=== PATIENT | male | born 1945 | race Caucasian/White ===

== ENCOUNTER 2021-08-27 11:48 | Emergency (ER) | payer OTHER, SELFPAY ==
[2021-08-27 11:48] VITALS: BP 126/84; PULSE 71; RESP 18; TEMP 36.9; O2SAT 99; BMI 16.9
--- NOTE | 2021-08-27 12:00 | EX.ED.DYSGE1 ---
HPI History of Present Illness Chief Complaint: Abn Labs Detail of Chief Complaint: Low magnesium Informant: patient Narrative Narrative: Patient presents to the emergency department with complaint of low magnesium. Patient [facility] that [facility] Patient was advised to come to the emergency department to get an IV infusion of magnesium. 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 At that time he was told he should discontinue his magnesium until advised otherwise. Patient has been off of antibiotics for over 2 months now and nobody is told him to restart his magnesium. Patient states he feels great otherwise has no complaints. Prior similar symptoms: No PFSH PFSH Medical History (Updated 08/27/21 @ 13:[address] Héctor Lozada DO) GERD (gastroesophageal reflux disease) High cholesterol HTN (hypertension) Home Medications albuterol sulfate 2 puff INHALATION Q6H PRN 08/27/21 [History Last Taken Unknown] aspirin [Aspir-81] 81 mg PO DAILY 08/27/21 [History Last Taken Unknown] cholecalciferol (vitamin D3) 25 mcg PO DAILY 08/27/21 [History Last Taken Unknown] furosemide 20 mg PO DAILY PRN 08/27/21 [History Last Taken Unknown] magnesium [Mag-200] 420 mg PO DAILY 08/27/21 [History Last Taken Unknown] metoprolol succinate 200 mg PO DAILY 08/27/21 [History Last Taken Unknown] omeprazole 40 mg PO DAILY 08/27/21 [History Last Taken Unknown] sacubitril-valsartan 1 tab PO BID 08/27/21 [History Last Taken Unknown] simvastatin 40 mg PO QHS 08/27/21 [History Last Taken Unknown] tiotropium bromide 2 puff INHALATION DAILY 08/27/21 [History Last Taken Unknown] Allergy/AdvReac Type Severity Reaction Status Date / Time amoxicillin [From Augmentin] Allergy NEEDS Verified 08/27/21 11:49 FOLLOW-UP clavulanic acid Allergy NEEDS Verified 08/27/21 11:49 [From Augmentin] FOLLOW-UP Surgical History (Updated 08/27/21 @ 12:09 by Barbara Power) History of loop recorder Social History Smoking Status: Never smoker ROS ROS ED Constitutional Constitutional ED: Reports systems reviewed and no addt'l complaints, except as documented; Denies body ache(s), change in weight or chills Eyes Eyes: Denies acute decrease in peripheral vision, change in vision, double vision or loss of vision ENT ENT ED: Reports none; Denies ear pain, lip swelling, loss taste/smell, neck pain, otalgia or sore throat Cardiovascular Cardiovascular: Reports none; Denies abdominal pain, chest pain with activity, leg edema, lightheadedness, palpitations, rapid heart rate or syncope Respiratory/Chest Respiratory/Chest: Reports none; Denies change in mental status, dry cough, dyspnea, hemoptysis, shortness of breath at rest or shortness of breath with exertion Gastrointestinal Gastrointestinal: Reports none; Denies abdominal pain, change in stool character, diarrhea, hematemesis, hematochezia, melena, rectal bleeding or vomiting Genitourinary Genitourinary ED: Reports none; Denies abdominal discomfort, anuria, dysuria, genital pain or polyuria Musculoskeletal Musculoskeletal: Reports none; Denies arthralgias, back pain, difficulty walking, extremity pain, muscle weakness or myalgias Integumentary Reports none; Denies abscess or rash Neurologic Neurologic: Reports none; Denies abnormal gait, confusion, focal weakness, frequent falls, headache(s), loss of vision, numbness, paresthesias, radicular pain, vertigo or weakness Psychiatric Psychiatric: Reports systems reviewed and no addt'l complaints, except as documented and none; Denies behavioral changes, confusion, difficulty concentrating, hallucinations, suicidal ideation, tactile hallucinations or visual hallucinations Endocrine Endocrinology: Denies none, cold intolerance, excessive sweating, fatigue or heat intolerance Hematologic/Lymphatic Hematologic/Lymphatic: Reports none; Denies anemia, easy bleeding or easy bruising Allergic/Immunologic Allergic/Immunologic ED: Denies as per HPI, none, lip swelling, mouth swelling, throat swelling, tongue swelling or hives EXAM Physical Exam Const Vital Signs: 08/27/21 11:48 08/27/21 12:09 08/27/21 12:11 Temperature 98.5 F Temperature Source Temporal Pulse Rate 71 89 Respiratory Rate 18 18 Respiratory Effort Normal Non-Labored Respiratory Pattern Normal Blood Pressure 126/84 H 135/83 H Blood Pressure Mean 98 100 Pulse Ox 99 100 Oxygen Delivery Method Room Air Room Air 08/27/21 13:43 Temperature Temperature Source Pulse Rate 80 Respiratory Rate 24 H Respiratory Effort Respiratory Pattern Blood Pressure 122/80 H Blood Pressure Mean 94 Pulse Ox 97 Oxygen Delivery Method Room Air Positive well nourished and well developed General Appearance ED: well developed and NAD HEENT Reports TM's clear and moist mucous membranes normocephalic and atraumatic; Negative for trauma or tenderness Tympanic Membrane ED: Yes TM's clear Eyes PERRL and EOMs intact bilaterally General Eye ED: Negative for pale conjunctiva or scleral icterus Neck no lymphadenopathy, supple and no JVD General: Negative for tenderness Chest Wall inspection of chest normal and palpation of chest normal Chest: Negative for tenderness Resp normal respiratory effort and clear to auscultation bilaterally Effort and Inspection: Negative for respiratory distress or pain with movement Auscultation: Negative for rhonchi, wheezes or diminished lung sounds Cardio regular rate, regular rhythm, S1 normal heart sound, S2 normal heart sound and no murmurs Peripheral Pulses: pulses 2+ throughout GI normal to inspection, nondistended, normoactive bowel sounds, soft to palpation, non-tender, non-distended and no masses Back/Spine no CVA tenderness and no thoracic nor lumbar tenderness Extremity normal to inspection General Extremety ED: Negative for edema General Extremity: Negative for edema Neuro oriented x3, CN's II-XII intact bilaterally, no sensory deficits noted and gait normal Sensorium / Orientation: awake, alert, oriented to person, oriented to place and oriented to time Motor Exam: strength 5/5 throughout and strength abnormal Psych mental status grossly normal Skin no rashes or lesions noted and no wounds MDM MDM MDM Narrative Medical decision making narrative: Patient will be given 2 g of magnesium IV. EKG will be obtained. Patient will be discharged home and advised to restart his oral magnesium therapy. He is to follow-up with his primary care physician within next 3 to 5 days. While awaiting for his magnesium patient had an episode of nonsustained ventricular tachycardia. I had a discussion with patient about admitting him at least for an observation. To replace his magnesium and monitor him. Patient states that he [place] a [place] that he has been having these episodes. He currently does not have a pacer defibrillator as his other one had been infected. Patient does not want to be admitted and is refusing admission to the [place] or our facility. Patient states that it is just not possible for him to stay. Patient understands that this could be a life-threatening rhythm and he has capacity to make decision. Patient will sign out AGAINST MEDICAL ADVICE. Lab Data Attestation: I reviewed the patient's lab results. Labs: Laboratory Results - last 24 hr 08/27/21 12:05 Sodium 138 Potassium 4.0 Chloride 107 Carbon Dioxide 26.0 Anion Gap 5 BUN 15 Creatinine 1.10 Estim Creat Clear Calc 40.82 Est GFR (MDRD) Af Amer 84 Est GFR (MDRD) Non-Af 69 BUN/Creatinine Ratio 13.6 Glucose 115 H Calcium 9.9 Magnesium 1.1 L EKG Initial EKG: Attestation: I personally reviewed and interpreted this EKG as follows: Comments: Sinus rhythm with a ventricular rate of 80 bpm with no acute ST segment changes and no evidence of prolonged QT Discharge Plan Triage Chief Complaint: Abn Labs ED Provider: Héctor Lozada Dx/Rx/DC Orders Clinical Impression: Hypomagnesemia, Ventricular tachycardia Instructions: Ventricular Arrhythmia, Discharge Instructions for ... Prescriptions: No Action metoprolol succinate 200 mg Tablet Extended Release 24 Hr 200 mg PO DAILY RF: 0 aspirin [Aspir-81] 81 mg Tablet,Delayed Release (Dr/Ec) 81 mg PO DAILY RF: 0 simvastatin 40 mg Tablet 40 mg PO QHS RF: 0 omeprazole 20 mg Capsule,Delayed Release(Dr/Ec) 40 mg PO DAILY RF: 0 furosemide 20 mg Tablet 20 mg PO DAILY PRN (Reason: Edema) RF: 0 albuterol sulfate 90 mcg/actuation Hfa Aerosol Inhaler 2 puff INHALATION Q6H PRN (Reason: Wheezing) RF: 0 cholecalciferol (vitamin D3) 25 mcg (1,000 unit) Capsule 25 mcg PO DAILY RF: 0 magnesium [Mag-200] 200 mg Tablet 420 mg PO DAILY RF: 0 tiotropium bromide 2.5 mcg/actuation Mist 2 puff INHALATION DAILY RF: 0 sacubitril-valsartan 49-51 mg Tablet 1 tab PO BID RF: 0 Primary Care Provider: Care Physician,No Primary Referrals: Care Physician,No Primary [Primary Care Provider] - Activity Restrictions/Additional Instructions: See your physicians in 3 to 5 days for follow-up. Restart your magnesium daily. Disposition Disposition: Against Medical Advice
[2021-08-27 12:11] VITALS: BP 135/83; PULSE 89; RESP 18; O2SAT 100
[2021-08-27 12:26] LABS: Anion Gap 5 (5-15); BUN 15 mg/dL (7-18); BUN/Creat Ratio 13.6 RATIO (10-20); Calcium,Total 9.9 mg/dL (8.5-10.1); Chloride 107 mmol/L (98-107); EST Glomerular Filtration Rate 69 mL/min (>60); Est Glom Filt Rate - Afr Amer 84 mL/min (>60); Estimated Creatinine Clearance 40.82 ml/min; Glucose 115 mg/dL (74-106); Magnesium 1.1 mg/dL (1.6-2.6); Sodium Level 138 mmol/L (136-145)
--- NOTE | 2021-08-27 12:43 | EKG12_ITS ---
Test Reason : ABNORMAL LABS Blood Pressure : / mmHG Vent. Rate : 080 BPM Atrial Rate : 080 BPM P-R Int : 146 ms QRS Dur : 090 ms QT Int : 382 ms P-R-T Axes : 063 -07 067 degrees QTc Int : 440 ms Normal sinus rhythm Normal ECG Confirmed by FER CURIEL, ANGIE ([id number]), art editor EMMA CASTELLANOS ([id number]) on 08/28/2021 1:49:53 P M Referred By: JAIME Confirmed By:GILA MONROE MD
[2021-08-27 13:43] VITALS: BP 122/80; PULSE 80; RESP 24; O2SAT 97
[2021-08-27] MEDS: Magnesium Sulfate 2 GM IV IV (14:08)
[2021-08-27 15:00] VITALS: BP 124/80; PULSE 76; RESP 23; O2SAT 100
[2021-08-27 16:24] VITALS: BP 155/81; PULSE 79; RESP 19; O2SAT 99
== END 2021-08-27 16:25 | disposition left against medical advice (07) ==
PROVIDERS: Emergency Provider Emergency Medicine
DX: E83.42 Hypomagnesemia (principal); I47.2 Ventricular tachycardia; Z53.21 Procedure and treatment not carried out due to patient leaving prior to being seen by health care provider; I10 Essential (primary) hypertension; E78.00 Pure hypercholesterolemia, unspecified; K21.9 Gastro-esophageal reflux disease without esophagitis; Z79.82 Long term (current) use of aspirin; Z79.899 Other long term (current) drug therapy
CPT/HCPCS: 80048; 83735; 93005; 96365; 96366; 99283; J7050; A4216; J3475

== ENCOUNTER 2022-08-05 05:00 | Inpatient (IN) | payer OTHER, SELFPAY ==
[2022-08-05] VITALS (25 sets, daily range): BP systolic 84–131; BP diastolic 45–85; PULSE 81–111; RESP 14–33; TEMP 36.3–37.3; O2SAT 81–96; BMI 17.8; BMI 16.0
--- NOTE | 2022-08-05 05:10 | RAD_ITS ---
EXAM: XR CHEST, 2 VIEWS CLINICAL INDICATION: cough sob cough sob TECHNIQUE: Frontal and lateral views of the chest. This report was created using [employer] report generation technology. COMPARISON: None. FINDINGS: LUNGS AND PLEURAL SPACES: There are emphysematous and fibrotic changes in the lungs. There are pulmonary infiltrates within the mid and lower lung cnonell bilaterally. No pneumothorax. No effusion. HEART: There is an implanted cardiac loop monitor overlying the left side of the chest. MEDIASTINUM: Central airways and mediastinal contour are unremarkable. BONES/JOINTS: Unremarkable. SOFT TISSUES: Unremarkable. UPPER ABDOMEN: CT scan abdomen and pelvis 08/05/2022. RAD/Chest PA and Lateral IMPRESSION: 1. Fibrotic and emphysematous changes in the lungs. 2. Pulmonary airspace infiltrates within the mid and lower lung connell bilaterally, suspicious for pneumonia. Electronically Signed: Petar Gonzales MD at 7:04 EDT Reading Location ID and State: [facility] / [place] , Service support ,
--- NOTE | 2022-08-05 05:10 | CT_ITS ---
EXAM: CT ABDOMEN AND PELVIS WITH INTRAVENOUS CONTRAST CLINICAL INDICATION: diffuse abd pain, n/v diffuse abd pain, n/v TECHNIQUE: Helically acquired images were obtained of the abdomen and pelvis with intravenous contrast. This CT exam was performed using one or more of the following dose reduction techniques: automated exposure control, adjustment of the mA and/or kV according to patient size, and/or use of iterative reconstruction technique. This report was created using [employer] report generation technology. CONTRAST: IV 100mL Isovue-370 RADIATION DOSE: CTDIvol = 14.13 mGy, DLP = 243.38 mGy-cm COMPARISON: Chest x-ray done today. FINDINGS: LOWER THORAX: There are fibrotic changes in the visualized lower lung connell bilaterally. There are innumerable paraseptal and centrilobular emphysematous bullae. There is honeycombing, suggesting usual interstitial pneumonitis. There are pulmonary airspace infiltrates in the visualized lower lung connell bilaterally, which may represent active pneumonia. No cardiomegaly. No significant pericardial effusion. ABDOMEN: LIVER: Unremarkable. Homogeneous. No focal mass. GALLBLADDER AND BILE DUCTS: Unremarkable. No calcified gallstones. No gallbladder distention or wall edema. No intra- or extrahepatic biliary ductal dilation. PANCREAS: Unremarkable. No focal cystic or solid mass. SPLEEN: Unremarkable. Normal size without focal cystic or solid mass. ADRENALS: Unremarkable. No nodules. KIDNEYS AND URETERS: There are simple appearing renal cysts in both kidneys. No follow-up imaging is necessary for simple renal cysts or cysts that are too small to characterize. There are areas of cortical scarring in both kidneys as well as thinning in the upper pole of the left kidney. There are 4 nonobstructive right renal calculi, ranging up to 7 mm. There is a 2 mm nonobstructive left renal calculus. There is no demonstrated hydronephrosis. As seen on axial images 87-89, there are 2 distal left ureteral calculi within the interstitial portion of the left ureteral ureterovesical junction and possibly within a ureterocele. The more distal of these measures 9 mm in width and the more proximal measures 4 mm in width. STOMACH AND BOWEL: There is mildly prominent large and small bowel gas with a nonspecific nonobstructive pattern. No focal inflammatory change. PELVIS: APPENDIX: The appendix is not identified. There is no evidence for acute appendicitis. BLADDER: Unremarkable. REPRODUCTIVE: Unremarkable as visualized. No mass. ABDOMEN and PELVIS: INTRAPERITONEAL SPACE: Unremarkable. No ascites or other fluid collection. No free air. BONES/JOINTS: There are multilevel degenerative changes in the visualized spine. No suspicious lytic or blastic abnormality. SOFT TISSUES: Unremarkable. No discrete abdominal or pelvic wall hernia. VASCULATURE: There is a chronic calcification of the abdominal aorta. Abdominal aorta is non-dilated. LYMPH NODES: Unremarkable. No enlarged lymph nodes. CT/Abdomen/Pelvis W IV Cont ONLY IMPRESSION: 1. Fibrotic and emphysematous changes in the visualized lungs, consistent with usual interstitial pneumonitis. Suspect overlying pneumonia bilaterally. 2. 5 mm wide and 4 mm wide distal left ureteral calculi in the ureterovesical junction. The more distal calculus might be within a ureterocele. Calculate are nonobstructive with no associated hydronephrosis or hydroureter. 3. Small nonobstructive renal calculi bilaterally. Cortical scarring in both kidneys. Bilateral renal cysts. 4. Atherosclerosis. 5. Mildly prominent bowel gas with a nonspecific nonobstructive pattern.. Electronically Signed: Petar Gonzales MD at 7:17 EDT ,
--- NOTE | 2022-08-05 05:12 | EDS_ITS ---
HPI HPI - GI History of Present Illness Chief Complaint: Abd Pain Informant: patient and EMS Abdominal Pain/Flank Pain Onset: Yesterday Context: Gradual Onset Timing: Continuous Quality: Aching, Sharp and Stabbing Location: Diffuse (mostly periumbilical) Current Severity: Severe Maximum Severity: Severe Worsened by: - (vomiting) Relieved by: Nothing Nausea/Vomiting/Emesis GI Symptom: Positive for Nausea and Vomiting Onset: Yesterday Quality: Positive for Nonbilious Severity: Severe Diarrhea/Melena/Hematochezia GI Symptom: Positive for Diarrhea; Negative for Melena or Hematochezia Onset: - (chronic, intermittent - unchanged) Stool Quality: Negative for Black, Maroon or BRB per rectum Associated Symptoms Associated Symptoms: Negative for Dysuria, Frequency, Hematuria or Urgency Narrative Narrative: Patient started having periumbilical abdominal pain last night that felt like indigestion initially, it gradually became worse and caused him to feel nauseated and vomited, he has vomited off and on the entire night, presents here at around 5 AM for all of the symptoms that are persistent. He states he has had episodes like this in the past, but this is much worse in severity. Denies any fevers or chills but at some point he developed a cough and trouble breathing during all of this, he states he was feeling fine prior to the abdominal pain starting. When asked if he knowingly aspirated vomit, he states not that he knows of but he could have. No recent leg swelling. No history of congestive heart failure. No prior abdominal surgeries. [facility] Medical History (Updated 08/05/22 @ 07:[address] Juan Dye MD) COPD (chronic obstructive pulmonary disease) GERD (gastroesophageal reflux disease) High cholesterol HTN (hypertension) Home Medications albuterol sulfate 90 mcg/actuation aerosol inhaler 2 puff inhalation Q6H PRN Wheezing 08/27/21 [History Last Taken Unknown] aspirin 81 mg tablet,delayed release 81 mg PO DAILY 08/27/21 [History Last Taken Unknown] magnesium 200 mg tablet 420 mg PO BID 08/27/21 [History Last Taken Unknown] metoprolol succinate 200 mg tablet,extended release 24 hr 200 mg PO DAILY 08/27/21 [History Last Taken Unknown] omeprazole 20 mg capsule,delayed release 40 mg PO DAILY 08/27/21 [History Last Taken Unknown] sacubitril 49 mg-valsartan 51 mg tablet 1 tab PO BID 08/27/21 [History Last Taken Unknown] simvastatin 40 mg tablet 40 mg PO QHS 08/27/21 [History Last Taken Unknown] tiotropium bromide 2.5 mcg/actuation mist for inhalation 2 puff inhalation DAILY 08/27/21 [History Last Taken Unknown] carbamide peroxide 6.5 % ear drops 5 - 10 drp RIGHT EAR Q12H 08/05/22 [History Last Taken Unknown] fluconazole 150 mg tablet 150 mg PO DAILY 08/05/22 [History Last Taken Unknown] miconazole nitrate 2 % topical cream 1 applic topical DAILY 08/05/22 [History Last Taken Unknown] triamcinolone acetonide 0.1 % topical cream 1 applic topical BID 08/05/22 [History Last Taken Unknown] Allergy/AdvReac Type Severity Reaction Status Date / Time amoxicillin [From Augmentin] Allergy NEEDS Verified 08/05/22 05:02 FOLLOW-UP clavulanic acid Allergy NEEDS Verified 08/05/22 05:02 [From Augmentin] FOLLOW-UP Surgical History History of loop recorder Social History Smoking Status: Never smoker ROS ROS ED Constitutional Constitutional ED: Reports malaise; Denies chills or fever(s) Eyes Eyes: Denies change in vision or diplopia ENT ENT ED: Denies rhinorrhea or sore throat Cardiovascular Cardiovascular: Denies chest pain or palpitations Respiratory/Chest Respiratory/Chest: Reports cough and dyspnea Gastrointestinal Gastrointestinal: Reports as per HPI, abdominal pain, diarrhea, nausea and vomiting Genitourinary Genitourinary ED: Denies dysuria or hematuria Musculoskeletal Musculoskeletal: Denies back pain or neck pain Integumentary Denies abscess or rash Neurologic Neurologic: Denies headache(s), paresthesias or weakness Psychiatric Psychiatric: Denies anxiety or suicidal thoughts EXAM Physical Exam Const Vital Signs: 08/05/22 05:02 08/05/22 05:06 08/05/22 05:14 Temperature 98.7 F Temperature Source Temporal Pulse Rate 111 H Respiratory Rate 33 H Blood Pressure 131/85 H Blood Pressure Mean 100 Pulse Ox 81 89 92 Oxygen Delivery Method Room Air Nasal Cannula Oxygen Flow Rate (L/min) 5 4 08/05/22 05:18 08/05/22 05:44 08/05/22 05:49 Temperature 98.0 F 98 F Temperature Source Temporal Temporal Pulse Rate 111 H 99 96 Respiratory Rate 33 H 31 H 32 H Blood Pressure 131/85 H 117/78 Blood Pressure Mean 100 91 Pulse Ox 92 91 Oxygen Delivery Method Nasal Cannula Nasal Cannula Oxygen Flow Rate (L/min) 4 4 08/05/22 07:11 Temperature Temperature Source Pulse Rate 91 Respiratory Rate 23 H Blood Pressure 98/45 L Blood Pressure Mean 62 Pulse Ox 93 Oxygen Delivery Method Nasal Cannula Oxygen Flow Rate (L/min) 4 Positive well nourished and well developed General Appearance ED: well developed and NAD HEENT Reports moist mucous membranes normocephalic and atraumatic Eyes PERRL and EOMs intact bilaterally Neck full ROM and supple Resp Resp Narrative: Mild respiratory distress, crackles and rales in the right base. Cardio regular rate, regular rhythm and no murmurs Rate: tachycardic GI non-distended GI Narrative: Tender periumbilical without palpable hernia, also tender right lower quadrant. Mild tenderness across upper abdomen. No left lower quadrant tenderness. No guarding or rebound. No palpable masses or pulsatile mass. Auscultation: normoactive bowel sounds Palpation: soft Back/Spine no CVA tenderness General Back: other FROM Extremity normal to inspection General Extremety ED: Negative for edema, pulses abnormal or tenderness General Extremity: Negative for edema or pulses abnormal Neuro oriented x3, CN's II-XII intact bilaterally and no sensory deficits noted Sensorium / Orientation: awake and alert Motor Exam: strength 5/5 throughout Skin no rashes or lesions noted and no wounds MDM MDM MDM Narrative Medical decision making narrative: Patient is 81% on room air upon initial evaluation/arrival. He was placed on a nasal cannula. 2 view chest x-ray on my interpretation shows right lower lobe infiltrate, radiology in agreement. This is consistent with where he sounds like pneumonia on auscultation clinically. I suspect this is all due to aspiration given that he has been retching all night. After giving him IV fluids, morphine, Zofran, his abdomen feels 100% better. His CT scan shows nothing acute. He states the left ureteral stones that are nonobstructing are already known to him. He was also given nebulizer treatment and his breathing is better as well but he still has an oxygen requirement. He is currently on a 4 L nasal cannula at 92-93%, and mostly because of this the plan is admission. He was given clindamycin since he has a penicillin allergy. Lab Data Attestation: I reviewed the patient's lab results. Labs: Laboratory Results - last 24 hr 08/05/22 08/05/22 05:10 05:10 WBC 4.9 RBC 6.49 H Hgb 19.3 H* Hct 58.1 H MCV 89.5 MCH 29.7 MCHC 33.2 RDW Std Deviation 46.9 H RDW Coeff of Sherry 14.8 H Plt Count 271 MPV 9.5 Immature Gran % (Auto) 0.200 Neut % (Auto) 81.7 H Lymph % (Auto) 13.9 L Smyth % (Auto) 2.2 Eos % (Auto) 1.4 Baso % (Auto) 0.6 Absolute Neuts (auto) 4.0 Absolute Lymphs (auto) 0.68 L Nucleated RBC % 0 Differential Comment SCANNED Diff Path Review May foll Sodium 140 Potassium 3.4 L Chloride 109 H Carbon Dioxide 20.0 L Anion Gap 11 BUN 14 Creatinine 1.29 Estim Creat Clear Calc 36.19 Est GFR (MDRD) Af Amer 70 Est GFR (MDRD) Non-Af 58 L BUN/Creatinine Ratio 10.9 Glucose 105 Calcium 10.2 H Total Bilirubin 0.70 AST 13 L ALT 14 L Alkaline Phosphatase 110 Troponin I High Sens 7 Total Protein 7.7 Albumin 3.5 Globulin 4.2 Albumin/Globulin Ratio 0.8 L Lipase 68 L Radiography Diagnostic Testing: Clinical Impression(s) from Imaging Studies Abdomen/Pelvis CT 08/05/22 05:10 IMPRESSION: 1. Fibrotic and emphysematous changes in the visualized lungs, consistent with usual interstitial pneumonitis. Suspect overlying pneumonia bilaterally. 2. 5 mm wide and 4 mm wide distal left ureteral calculi in the ureterovesical junction. The more distal calculus might be within a ureterocele. Calculate are nonobstructive with no associated hydronephrosis or hydroureter. 3. Small nonobstructive renal calculi bilaterally. Cortical scarring in both kidneys. Bilateral renal cysts. 4. Atherosclerosis. 5. Mildly prominent bowel gas with a nonspecific nonobstructive pattern.. Electronically Signed: Petar Gonzales MD at 7:17 EDT , Chest X-Ray 08/05/22 05:10 IMPRESSION: 1. Fibrotic and emphysematous changes in the lungs. 2. Pulmonary airspace infiltrates within the mid and lower lung connlel bilaterally, suspicious for pneumonia. Electronically Signed: Petar Gonzales MD at 7:04 EDT , Discharge Plan Dx/Rx/DC Orders Clinical Impression: Aspiration pneumonia, Hypoxemia, Vomiting, Abdominal pain, periumbilical Disposition Disposition: Acute Care Hospital [facility]
[2022-08-05 05:42] LABS: Absolute Lymphocyte Count 0.68 X10^3/uL (0.83-4.51); Basophil# 0.03 X10^3/uL; Basophil% 0.6 % (0-1); Eosinophil# 0.07 X10^3/uL; Eosinophils% 1.4 % (0-5); Hemoglobin 19.3 g/dL (13.0-16.5); Lymphocyte # 0.68 X10^3/ul (0.83-4.51); Lymphocyte % 13.9 % (19-41); Mean Corp Hgb Conc 33.2 g/dL (32-36); Mean Corpuscular Hgb 29.7 pg (27.0-32.0); Mean Corpuscular Volume 89.5 fL (80-94); Mean Platelet Vol. 9.5 fl (6.2-12.0); Monocyte# 0.11 X10^3/uL; Monocyte% 2.2 % (0-10); NRBC Flagged by Analyzer 0 % (0-5); Neutrophil % 81.7 % (47-70); Platelet Count 271 K/mm3 (150-450); RBC Distribution Width CV 14.8 % (11.6-14.6); RBC Distribution Width SD 46.9 fl (35.1-43.9); Red Blood Count 6.49 M/mm3 (4.6-6.2); White Blood Count 4.9 K/mm3 (4.4-11.0)
[2022-08-05] MEDS: Ipratropium/Albuterol Sulfate 3 ML AMPUL.NEB INHALATION ×3 (05:43→23:36)
[2022-08-05] MEDS: Albuterol 2.5 MG/3 ML VIAL.NEB. INHALATION (05:43)
[2022-08-05] MEDS: Ondansetron 4 MG/2 ML Vial IV (05:47)
[2022-08-05] MEDS: 0.9% Normal Saline 1,000 ML 125 ML IV ×2 (05:47→11:05)
[2022-08-05] MEDS: Morphine 4 MG/ML Syringe IV (05:47)
[2022-08-05 05:52] LABS: Hematocrit 58.1 % (40-54)
[2022-08-05 06:00] LABS: Differential Indicated SCAN CRITERIA MET
[2022-08-05 06:08] LABS: ALB/GLOB Ratio 0.8 RATIO (0.9-2.4); AST(SGOT) 13 U/L (15-37); Alanine Aminotransfer ALT/SGPT 14 U/L (16-61); Albumin, Serum 3.5 g/dL (3.2-5.0); Alkaline Phosphatase 110 U/L (45-117); Anion Gap 11 (5-15); BUN 14 mg/dL (7-18); BUN/Creat Ratio 10.9 RATIO (10-20); Calcium,Total 10.2 mg/dL (8.5-10.1); Chloride 109 mmol/L (98-107); Creatinine, Serum 1.29 mg/dL (0.70-1.30); EST Glomerular Filtration Rate 58 mL/min (>60); Est Glom Filt Rate - Afr Amer 70 mL/min (>60); Estimated Creatinine Clearance 36.19 ml/min; Globulin 4.2 g/dL (2.2-4.2); Glucose 105 mg/dL (74-106); Lipase 68 U/L (73-393); Potassium 3.4 mmol/L (3.5-5.1); Protein, Total 7.7 g/dL (6.4-8.2); Sodium Level 140 mmol/L (136-145); Troponin-I HS 7 pg/mL (3.0-78.0)
[2022-08-05 06:44] LABS: Differential Comment SCANNED
[2022-08-05] MEDS: Clindamycin 600 MG/50 ML BAG 100 MG IV (07:24)
--- NOTE | 2022-08-05 09:36 | CT_ITS ---
STUDY: CTA CHEST REASON FOR EXAM: Male, 77 years old. Hypoxia RADIATION DOSAGE (If Supplied By Facility): CTDIvol = ( 8.27 ) mGy, DLP = ( 247.97 ) mGycm TECHNIQUE: The examination was performed with the intravenous administration of IV 70mL Isovue-370. Post-processing of the angiographic images was performed, with multiplanar reformation and 3D reconstruction. Individualized dose optimization techniques were used for this CT. COMPARISON: None. FINDINGS: Normal enhancement of the main pulmonary artery and right and left pulmonary arteries. Normal enhancement of the bilateral peripheral pulmonary arteries. There is no demonstrated pulmonary embolism. Normal thoracic aorta and visualized great vessels. There is no demonstrated aortic dissection. Normal heart and pericardium. Normal mediastinum. Normal hilar regions. Normal visualized trachea and bronchi. Hyperinflation. Diffuse emphysematous changes with bullous formation worse in the upper lobes. There is evidence of a patchy infiltration superimposed in the posterior aspect of the right upper lobe with areas of bronchiectasis and honeycombing. There is also evidence of a focal infiltrate in the anterior aspect of the right middle lobe as well as at the left lung base and lingular segment of the left upper lobe. Normal pleura. Normal chest wall structures. There are degenerative changes of thoracic spine. Normal visualized upper abdomen. CT/CTA Chest W/WO Contrast IMPRESSION: Findings in keeping with diffuse emphysematous changes with bilateral chronic interstitial fibrosis with a superimposed patchy infiltrates in both lungs as described. Electronically Signed: Giovany Root MD at 11:30 EDT ,
[2022-08-05 10:35] LABS: Allen Test Positive; Base Excess -8 mmol/L (-2 to +2); Bicarbonate 18.9 mmol/L (22-26); Blood Gas Specimen Type ART; O2 Delivery Device NRB; PO2 82 mmHG (75-100); SITE L Radial; SO2 95 % (95-99); Total Carbon Dioxide 20 mmol/L; pCO2 38.8 mmHg (35-45)
[2022-08-05] MEDS: Aspirin E.C. 81 MG Tablet PO (11:06)
[2022-08-05] MEDS: 0.9% Saline Lock 10 ML Syringe IV (11:06)
[2022-08-05] MEDS: Pantoprazole Sodium 40 MG Tablet PO (11:06)
[2022-08-05] MEDS: Enoxaparin 40 MG/0.4 ML Syringe SC (11:06)
[2022-08-05] MEDS: Metoprolol(XL)Succ 200 MG Tablet PO (11:07)
[2022-08-05 11:16] LABS: BNP,B-Type NATRIURETIC PEPTIDE 1411.9 pg/mL (0-100)
--- NOTE | 2022-08-05 14:21 | PCM.HP.STD ---
Documented by User: Catrina Alcala NP, CORDUROY BRUSHER OPERATOR-C 08/05/22 14:41 HPI - General General Date of Admission: 08/05/22 Date of Service: 08/05/22 HPI Narrative INNA CEE, is a 77 M who presents to the emergency room due to nausea and abdominal pain. Patient states he has had nausea and vomiting for approximately 1 month which typically occurs after 2 PM. He reports intermittent abdominal pain however on admission states abdominal pain has resolved. He reports 3 to 5 pound weight loss over the past month and poor oral intake. He reports wet cough. Denies significant shortness of breath. Denies fever, chills. Denies exposure to sick contacts. Denies diarrhea. He is not on home oxygen. Patient is a poor informant. No family at bedside. He has a past medical history of hypertension, hyperlipidemia, GERD, COPD. [facility] Medical History COPD (chronic obstructive pulmonary disease) GERD (gastroesophageal reflux disease) High cholesterol HTN (hypertension) Home Medications albuterol sulfate 90 mcg/actuation aerosol inhaler 2 puff inhalation Q6H PRN Wheezing 08/27/21 [History Last Taken Unknown] aspirin 81 mg tablet,delayed release 81 mg PO DAILY 08/27/21 [History Last Taken Unknown] magnesium 200 mg tablet 420 mg PO BID 08/27/21 [History Last Taken Unknown] metoprolol succinate 200 mg tablet,extended release 24 hr 200 mg PO DAILY 08/27/21 [History Last Taken Unknown] omeprazole 20 mg capsule,delayed release 40 mg PO DAILY 08/27/21 [History Last Taken Unknown] sacubitril 49 mg-valsartan 51 mg tablet 1 tab PO BID 08/27/21 [History Last Taken Unknown] simvastatin 40 mg tablet 40 mg PO QHS 08/27/21 [History Last Taken Unknown] tiotropium bromide 2.5 mcg/actuation mist for inhalation 2 puff inhalation DAILY 08/27/21 [History Last Taken Unknown] carbamide peroxide 6.5 % ear drops 5 - 10 drp RIGHT EAR Q12H 08/05/22 [History Last Taken Unknown] fluconazole 150 mg tablet 150 mg PO DAILY 08/05/22 [History Last Taken Unknown] triamcinolone acetonide 0.1 % topical cream 1 applic topical BID skin 08/05/22 [History Last Taken Unknown] Allergy/AdvReac Type Severity Reaction Status Date / Time amoxicillin [From Augmentin] AdvReac Nausea Verified 08/05/22 11:26 clavulanic acid AdvReac Nausea Verified 08/05/22 11:26 [From Augmentin] Family History other other (Denies maternal/paternal medical history including cardiac history.) Surgical History History of loop recorder Social History (Updated 08/05/22 @ 14:27 by Catrina Alcala NP, CORDUROY BRUSHER OPERATOR-C) Smoking Status: Current some day smoker tobacco type: cigarettes alcohol intake: never substance use type: does not use ROS Constitutional Constitutional: Reports change in weight, malaise and weakness; Denies chills, fatigue or fever(s) Cardiovascular Cardiovascular: Denies chest pain, edema, lightheadedness, palpitations or syncope Respiratory/Chest Respiratory/Chest: Reports cough; Denies dyspnea, productive cough, shortness of breath at rest or wheezing Gastrointestinal Gastrointestinal: Reports abdominal pain, nausea and vomiting; Denies constipation or diarrhea Genitourinary Genitourinary: Denies burning urination, difficulty urinating, dysuria, hematuria, urinary frequency, urinary incontinence or urinary urgency Musculoskeletal Musculoskeletal: Denies back pain, joint pain or muscle weakness Integumentary Integumentary: Denies erythema, lesions, rash or wounds Neurologic Neurologic: Denies abnormal speech, confusion, dizziness, focal weakness, numbness, paresthesias, seizure-like activity or syncope Psychiatric Psychiatric: Denies anxiety or depression Hematologic/Lymphatic Hematologic/Lymphatic: Denies anemia, easy bleeding or easy bruising Allergic/Immunologic Allergic/Immunologic: Denies hives or asthma Vital Signs Vital Signs Vital Signs: 08/05/22 05:02 08/05/22 05:06 08/05/22 05:14 Temperature 98.7 F Temperature Source Temporal Pulse Rate 111 H Respiratory Rate 33 H Respiratory Effort Respiratory Depth Respiratory Pattern Blood Pressure 131/85 H Blood Pressure Mean 100 Blood Pressure Source Blood Pressure Position Blood Pressure Location Pulse Ox 81 89 92 Oxygen Delivery Method Room Air Nasal Cannula Oxygen Flow Rate (L/min) 5 4 08/05/22 05:18 08/05/22 05:44 08/05/22 05:49 Temperature 98.0 F 98 F Temperature Source Temporal Temporal Pulse Rate 111 H 99 96 Respiratory Rate 33 H 31 H 32 H Respiratory Effort Respiratory Depth Respiratory Pattern Blood Pressure 131/85 H 117/78 Blood Pressure Mean 100 91 Blood Pressure Source Blood Pressure Position Blood Pressure Location Pulse Ox 92 91 Oxygen Delivery Method Nasal Cannula Nasal Cannula Oxygen Flow Rate (L/min) 4 4 08/05/22 07:11 08/05/22 08:11 08/05/22 08:23 Temperature 97.4 F L Temperature Source Temporal Pulse Rate 91 87 Respiratory Rate 23 H 14 Respiratory Effort Respiratory Depth Respiratory Pattern Blood Pressure 98/45 L 84/59 L 94/60 Blood Pressure Mean 62 67 71 Blood Pressure Source Blood Pressure Position Blood Pressure Location Pulse Ox 93 91 94 Oxygen Delivery Method Nasal Cannula Nasal Cannula Nasal Cannula Oxygen Flow Rate (L/min) 4 4 4 08/05/22 08:25 08/05/22 08:54 08/05/22 09:05 Temperature 97.4 F L 97.5 F L Temperature Source Temporal Axillary Pulse Rate 98 99 Respiratory Rate 21 H 20 H Respiratory Effort Respiratory Depth Respiratory Pattern Blood Pressure 99/72 99/69 Blood Pressure Mean 81 79 Blood Pressure Source Monitor Blood Pressure Position Sitting Blood Pressure Location Left Arm Pulse Ox 94 88 95 Oxygen Delivery Method Nasal Cannula Nasal Cannula Non-Rebreather Oxygen Flow Rate (L/min) 4 6 15 08/05/22 09:29 08/05/22 09:54 08/05/22 11:00 Temperature 97.4 F L Temperature Source Temporal Pulse Rate 92 81 Respiratory Rate 20 H Respiratory Effort Short of Breath Respiratory Depth Normal Respiratory Pattern Normal Blood Pressure 91/56 L Blood Pressure Mean 67 Blood Pressure Source Monitor Blood Pressure Position Sitting Blood Pressure Location Left Arm Pulse Ox 96 Oxygen Delivery Method Non-Rebreather Non-Rebreather Oxygen Flow Rate (L/min) 15 15 08/05/22 11:07 08/05/22 13:13 08/05/22 13:25 Temperature Temperature Source Pulse Rate 81 Respiratory Rate Respiratory Effort Respiratory Depth Respiratory Pattern Blood Pressure 91/56 L Blood Pressure Mean Blood Pressure Source Blood Pressure Position Blood Pressure Location Pulse Ox 96 93 Oxygen Delivery Method Nasal Cannula Nasal Cannula Oxygen Flow Rate (L/min) 6 1 Weight Weight: 102 lb 8.239 oz Body Mass Index (BMI) 16.0 Results Lab / Micro Data Result Diagrams: 08/05/22 05:10 08/05/22 05:10 Labs: Laboratory Results - last 24 hr 08/05/22 05:10: WBC 4.9, RBC 6.49 H, Hgb 19.3 H*, Hct 58.1 H, MCV 89.5, MCH 29.7, MCHC 33.2, RDW Std Deviation 46.9 H, RDW Coeff of Sherry 14.8 H, Plt Count 271, MPV 9.5, Immature Gran % (Auto) 0.200, Neut % (Auto) 81.7 H, Lymph % (Auto) 13.9 L, Towner % (Auto) 2.2, Eos % (Auto) 1.4, Baso % (Auto) 0.6, Absolute Neuts (auto) 4.0, Absolute Lymphs (auto) 0.68 L, Nucleated RBC % 0, Differential Comment SCANNED, Diff Path Review March foll 08/05/22 05:10: Sodium 140, Potassium 3.4 L, Chloride 109 H, Carbon Dioxide 20.0 L, Anion Gap 11, BUN 14, Creatinine 1.29, Estim Creat Clear Calc 36.19, Est GFR (MDRD) Af Amer 70, Est GFR (MDRD) Non-Af 58 L, BUN/Creatinine Ratio 10.9, Glucose 105, Calcium 10.2 H, Total Bilirubin 0.70, AST 13 L, ALT 14 L, Alkaline Phosphatase 110, Troponin I High Sens 7, Total Protein 7.7, Albumin 3.5, Globulin 4.2, Albumin/Globulin Ratio 0.8 L, Lipase 68 L 08/05/22 05:10: B-Natriuretic Peptide 1411.9 H Micro: Microbiology 08/05/22 08:15 Nasal Secretion SARS-CoV-2 Antigen (Rapid) - Final ABG Data ABG results: ABG 08/05/22 10:28 Specimen Type ART Sample Site L Radial pH 7.30 L Bicarbonate Actual 18.9 L Total CO2 20 Base Excess -8 L O2 Saturation 95 ABG pCO2 38.8 ABG pO2 82 Fred Test Positive O2 Delivery Device NRB Liter Flow 15.0 Radiology Impression Abdomen/Pelvis CT 08/05/22 05:10 IMPRESSION: 1. Fibrotic and emphysematous changes in the visualized lungs, consistent with usual interstitial pneumonitis. Suspect overlying pneumonia bilaterally. 2. 5 mm wide and 4 mm wide distal left ureteral calculi in the ureterovesical junction. The more distal calculus might be within a ureterocele. Calculate are nonobstructive with no associated hydronephrosis or hydroureter. 3. Small nonobstructive renal calculi bilaterally. Cortical scarring in both kidneys. Bilateral renal cysts. 4. Atherosclerosis. 5. Mildly prominent bowel gas with a nonspecific nonobstructive pattern.. Electronically Signed: Petar Gonzales MD at 7:17 EDT , Chest X-Ray 08/05/22 05:10 IMPRESSION: 1. Fibrotic and emphysematous changes in the lungs. 2. Pulmonary airspace infiltrates within the mid and lower lung connell bilaterally, suspicious for pneumonia. Electronically Signed: Petar Gonzales MD at 7:04 EDT , Chest CTA 08/05/22 09:36 IMPRESSION: Findings in keeping with diffuse emphysematous changes with bilateral chronic interstitial fibrosis with a superimposed patchy infiltrates in both lungs as described. Electronically Signed: Giovany Root MD at 11:30 EDT , Assessment & Plan Assessment/Plan (1) Aspiration pneumonia: (2) Hypoxemia: PLAN: Plan 1. Acute hypoxic respiratory failure-likely multifactorial secondary to suspected aspiration pneumonia following recurrent episodes of vomiting, acute heart failure, complicated by underlying interstitial fibrosis-oxygen 81% on room air in the emergency room. Requiring nonrebreather. Continue supplemental oxygen to maintain O2 at above 90%. 2. Suspected aspiration pneumonia-on IV meropenem. Speech therapy consult. 3. Acute heart failure, unknown subtype-CTA with patchy infiltrates. BNP 1411. Obtain echocardiogram. Suspect patient has a history of CHF as he is on Entresto at baseline. Patient follows with the [place], request records. IV Lasix. Strict I&O. Daily weight. 4. Interstitial fibrosis-complicates management. Albuterol and DuoNeb aerosols. 5. Nausea with vomiting, recent weight loss-ongoing for 1 month. GI consulted. Dietitian consulted. 6. Severe protein calorie malnutrition-as evidenced by muscle and fat loss with cachectic appearance and recent weight loss/poor oral intake. Dietitian consulted. 7. Hypertension-stable, continue home Entresto, metoprolol regimen. 8. Hyperlipidemia- continue statin. 9. GERD-continue PPI. DVT prophylaxis- Lovenox sc This patient was seen by SALENA Carey under the supervision of Dr. Clifton. Time spent examining patient, reviewing data and subsequent management of care: 26 minutes Documented by User: Dr. Tommy Clifton DO 08/05/22 18:40 HPI - General General Date of Admission: 08/05/22 [facility] Medical History COPD (chronic obstructive pulmonary disease) GERD (gastroesophageal reflux disease) High cholesterol HTN (hypertension) Home Medications albuterol sulfate 90 mcg/actuation aerosol inhaler 2 puff inhalation Q6H PRN Wheezing 08/27/21 [History Last Taken Unknown] aspirin 81 mg tablet,delayed release 81 mg PO DAILY 08/27/21 [History Last Taken Unknown] magnesium 200 mg tablet 420 mg PO BID 08/27/21 [History Last Taken Unknown] metoprolol succinate 200 mg tablet,extended release 24 hr 200 mg PO DAILY 08/27/21 [History Last Taken Unknown] omeprazole 20 mg capsule,delayed release 40 mg PO DAILY 08/27/21 [History Last Taken Unknown] sacubitril 49 mg-valsartan 51 mg tablet 1 tab PO BID 08/27/21 [History Last Taken Unknown] simvastatin 40 mg tablet 40 mg PO QHS 08/27/21 [History Last Taken Unknown] tiotropium bromide 2.5 mcg/actuation mist for inhalation 2 puff inhalation DAILY 08/27/21 [History Last Taken Unknown] carbamide peroxide 6.5 % ear drops 5 - 10 drp RIGHT EAR Q12H 08/05/22 [History Last Taken Unknown] fluconazole 150 mg tablet 150 mg PO DAILY 08/05/22 [History Last Taken Unknown] triamcinolone acetonide 0.1 % topical cream 1 applic topical BID skin 08/05/22 [History Last Taken Unknown] Allergy/AdvReac Type Severity Reaction Status Date / Time amoxicillin [From Augmentin] AdvReac Nausea Verified 08/05/22 11:26 clavulanic acid AdvReac Nausea Verified 08/05/22 11:26 [From Augmentin] Family History other Surgical History (Reviewed 08/05/22 @ 14:27 by Catrina Alcala CORDUROY BRUSHER OPERATOR, CORDUROY BRUSHER OPERATOR-C) History of loop recorder Social History (Updated 08/05/22 @ 14:27 by Catrina Alcala CORDUROY BRUSHER OPERATOR, CORDUROY BRUSHER OPERATOR-C) Smoking Status: Current some day smoker tobacco type: cigarettes alcohol intake: never substance use type: does not use Results Lab / Micro Data Result Diagrams: 08/05/22 05:10 08/05/22 05:10 Assessment & Plan Assessment/Plan (1) Aspiration pneumonia: (2) Hypoxemia: Charges/Coding Addendum Addendum: Patient was seen and examined today independently of Catrina Alcala, he came to the ER at [facility] this morning with complaints of mid abdominal pain, vomiting, and diarrhea. When talking with the patient in the emergency room, he stated that he has had chronic intermittent vomiting over the last several weeks, he is also had intermittent diarrhea also. Patient related to an episode of vomiting with possible aspiration per the emergency room physician. Work-up in the emergency room included a chest x-ray which showed a right lower lobe infiltrate, patient's pulse ox on room air was 81%, patient was given IV fluids, morphine, and Zofran with resolution of his abdominal pain. CT scan of the abdomen pelvis showed no acute process, patient had the presence of left ureteral stones-patient states this was known to him, there is no evidence of hydronephrosis however. Patient was given IV clindamycin because of a suspected allergy to penicillin, labs reveal a normal white blood cell count, hemoglobin of 19.3, a potassium of 3.4, and patient's liver enzymes were unremarkable. Patient was given IV fluids in the emergency room due to a low systolic blood pressure. On examination he appeared cachectic and unwell. Vital signs as documented. Skin warm and dry and without overt rashes. Neck without JVD, neck was supple, trachea midline, thyroid was normal. Lungs-there were inspiratory wheezes noted at the right lung base along with decreased breath sounds, left lung base breath sounds were diminished. Heart exam notable for regular rhythm, normal sounds and absence of murmurs, rubs or gallops. Abdomen unremarkable and without evidence of organomegaly, masses, or abdominal aortic enlargement. Bowel sounds are present, abdomen is not distended. Extremities nonedematous, no cyanosis was noted, no clubbing was noted. Neuro: Cranial nerves II through XII are grossly intact, no focal motor deficits were noted, sensation to light touch and pinprick intact, motor exam 5/5 throughout. Psych: Patient is alert and oriented x3, he does not appear anxious or depressed, he does not appear agitated. Impression: #1 aspiration pneumonia-patient will be placed on IV meropenem, patient's allergy to penicillin is nausea #2 acute hypoxic respiratory failure-secondary to suspected aspiration pneumonia and possibly complicated by underlying interstitial fibrosis-pulse ox will be monitored , patient is currently on nasal cannula oxygen at the time of this dictation #3 acute diastolic CHF-patient an echocardiogram performed today, his EF is preserved, patient's beta nitric peptide is elevated, patient will be maintained on IV Lasix, [facility]. This will make care difficult as information concerning the patient is difficult to obtain. #4 interstitial fibrosis-complicates care, management, recovery, and prognosis #5 persistent intermittent nausea and vomiting along with diarrhea-patient will be seen in consultation by gastroenterology, at this time I will not administer IV fluids due to possibility of congestive heart failure. #6 severe protein and caloric malnutrition-patient will be seen by nutritional services I have reviewed Catrina Alcala's history and physical including her medical assessment and plan of care with the above additions endorse it. Total clinical time spent by myself addressing the patient's medical issues, reviewing the data, and collaborating with patient's care team: 50 minutes Visit Charges Inpatient E&M: 71945 Init Hosp L3
--- NOTE | 2022-08-05 14:36 | ECHOD_ITS ---
Reason For Study: CHF Procedure This was a 2D Doppler, Color Flow transthoracic echocardiogram. The study was technically difficult. Limited views were obtained. Exam performed portable in patient room. Left Ventricle Based upon the 2D echocardiographic images obtained there appears to be grossly normal left ventricular size, wall motion, and systolic function. The estimated ejection fraction is 60 %. Unable to assess diastolic dysfunction. Right Ventricle Based upon the 2D echocardiographic images obtained appears to be grossly normal right ventricular size and systolic function. Atria Normal left atrium. Normal right atrium. No doppler evidence for ASD. Mitral Valve There is no mitral annular calcification. Normal mitral valve. Mild (1+) mitral valve insufficiency. Tricuspid Valve Normal tricuspid valve. Mild tricuspid valve insufficiency. Right ventricular systolic pressure estimated to be 50 mmHg. Aortic Valve Trisinus/trileaflet aortic valve. Normal aortic valve. Pulmonic Valve The pulmonic valve is not well visualized. Great Vessels The aortic root is not well visualized. Pericardium/Pleural No pericardial effusion. MMode/2D Measurements & Calculations LVIDd: 2.7 cm IVSd: 1.2 cm LVIDs: 2.2 cm LVPWd: 1.5 cm FS: 18.9 % Time Measurements MV dec time: 0.16 sec Doppler Measurements & Calculations MV E max baldo: 48.6 cm/sec MV V2 max: 54.3 cm/sec MV A max baldo: 45.9 cm/sec MV max P.2 mmHg MV dec slope: 377.3 cm/sec2 MV E/A: 1.1 MV V2 mean: 35.4 cm/sec MV mean P.56 mmHg MV V2 VTI: 13.3 cm TR max baldo: 341.0 cm/sec TR max P.5 mmHg ECHO/Echo Complete Interpretation Summary The study was technically difficult. Limited views were obtained. Based upon the 2D echocardiographic images obtained there appears to be grossly normal left ventricular size, wall motion, and systolic function. The estimated ejection fraction is 60 %. Mild (1+) mitral valve insufficiency. Mild tricuspid valve insufficiency. Right ventricular systolic pressure estimated to be 50 mmHg compatible with pul monary hypertension. Unable to assess diastolic dysfunction. Ordering Physician: Catrina Alcala Performed By: Jammie Rhodes RCS
[2022-08-05] MEDS: Potassium Chloride Oral Tablet 20 MEQ 40 MEQ PO (15:17)
[2022-08-05] MEDS: Furosemide 40 MG/4 ML Vial IV (15:17)
[2022-08-05] MEDS: Ensure Plus High Protein 120 ML LIQUID PO (17:06)
[2022-08-05] MEDS: Acetaminophen 325 MG Tablet 650 MG PO (17:09)
--- NOTE | 2022-08-05 18:16 | PCM.CONS.GEN ---
Assessment & Plan Assessment/Plan (1) Aspiration pneumonia: PLAN: Possible aspiration pneumonia secondary to recurrent nausea vomiting (2) Vomiting: PLAN: She has upper GI tract evaluated. CT scan of the chest abdomen pelvis due to the fact that he is severe weight loss and is cachectic. We will evaluate his upper GI tract with an EGD. He was explained alternatives, risk, benefits including outstanding bleeding, infection, sepsis, perforation, need for emergent . He will have an ASA of 3. HPI Consult Data Date of Consult: 08/07/22 HPI Narrative Reason for Consultation: Nausea and vomiting HPI Narrative: INNA CEE, is a 77 M who presents to the ED with worsening abdominal pain. He started having periumbilical abdominal pain last night that felt like indigestion initially, it gradually became worse and caused him to feel nauseated and vomited. He has vomited off and on the entire night, presents here at around 5 AM for all of the symptoms that are persistent.? He states he has had episodes like this in the past, but this is much worse in severity.? He denies any fevers or chills but at some point he developed a cough and trouble breathing during all of this, he states he was feeling fine prior to the abdominal pain starting.? When asked if he knowingly aspirated vomit, he states not that he knows of but he could have.? No recent leg swelling.? No history of congestive heart failure.? No prior abdominal surgeries. All other 16 review of systems negative . [facility] Medical History COPD (chronic obstructive pulmonary disease) GERD (gastroesophageal reflux disease) High cholesterol HTN (hypertension) Home Medications albuterol sulfate 90 mcg/actuation aerosol inhaler 2 puff inhalation Q6H PRN Wheezing 08/27/21 [History Last Taken Unknown] aspirin 81 mg tablet,delayed release 81 mg PO DAILY 08/27/21 [History Last Taken Unknown] magnesium 200 mg tablet 420 mg PO BID 08/27/21 [History Last Taken Unknown] metoprolol succinate 200 mg tablet,extended release 24 hr 200 mg PO DAILY 08/27/21 [History Last Taken Unknown] omeprazole 20 mg capsule,delayed release 40 mg PO DAILY 08/27/21 [History Last Taken Unknown] sacubitril 49 mg-valsartan 51 mg tablet 1 tab PO BID 08/27/21 [History Last Taken Unknown] simvastatin 40 mg tablet 40 mg PO QHS 08/27/21 [History Last Taken Unknown] tiotropium bromide 2.5 mcg/actuation mist for inhalation 2 puff inhalation DAILY 08/27/21 [History Last Taken Unknown] carbamide peroxide 6.5 % ear drops 5 - 10 drp RIGHT EAR Q12H 08/05/22 [History Last Taken Unknown] fluconazole 150 mg tablet 150 mg PO DAILY 08/05/22 [History Last Taken Unknown] triamcinolone acetonide 0.1 % topical cream 1 applic topical BID skin 08/05/22 [History Last Taken Unknown] Allergy/AdvReac Type Severity Reaction Status Date / Time amoxicillin [From Augmentin] AdvReac Nausea Verified 08/05/22 11:26 clavulanic acid AdvReac Nausea Verified 08/05/22 11:26 [From Augmentin] Family History other Surgical History (Reviewed 08/05/22 @ 14:27 by Catrina Alcala [employer], [employer]) History of loop recorder Social History (Updated 08/05/22 @ 14:27 by Catrina Alcala NP, [employer]) Smoking Status: Current some day smoker tobacco type: cigarettes alcohol intake: never substance use type: does not use ROS Constitutional Constitutional: Reports change in weight, malaise and weakness; Denies chills, fatigue or fever(s) Cardiovascular Cardiovascular: Denies chest pain, edema, lightheadedness, palpitations or syncope Respiratory/Chest Respiratory/Chest: Reports cough; Denies dyspnea, productive cough, shortness of breath at rest or wheezing Gastrointestinal Gastrointestinal: Reports abdominal pain, nausea and vomiting; Denies constipation or diarrhea Genitourinary Genitourinary: Denies burning urination, difficulty urinating, dysuria, hematuria, urinary frequency, urinary incontinence or urinary urgency Musculoskeletal Musculoskeletal: Denies back pain, joint pain or muscle weakness Integumentary Integumentary: Denies erythema, lesions, rash or wounds Neurologic Neurologic: Denies abnormal speech, confusion, dizziness, focal weakness, numbness, paresthesias, seizure-like activity or syncope Psychiatric Psychiatric: Denies anxiety or depression Hematologic/Lymphatic Hematologic/Lymphatic: Denies anemia, easy bleeding or easy bruising Allergic/Immunologic Allergic/Immunologic: Denies hives or asthma Physical Exam Const alert, oriented x3, no apparent distress, healthy appearing and well nourished General Appearance: cooperative, comfortable, well kempt and well developed Orientation / Consciousness: awake and oriented to person HEENT Head and Scalp: normocephalic and atraumatic Face and Sinus: normal facial exam Mouth: oral and palatal mucosa normal Eyes General Eye: normal appearance of both eyes Neck full ROM Lymph Lymphatic: no lymphadenopathy noted Chest inspection of chest normal Resp normal respiratory effort and no use of accessory muscles Cardio regular rate and regular rhythm GI normal to inspection, nondistended, normoactive bowel sounds, soft to palpation, non-tender, non-distended and no masses Auscultation: normoactive bowel sounds Palpation: soft Percussion: normal to percussion Rectal Exam: visual inspection normal and normal sphincter tone no CVA tenderness Back/Spine no CVA tenderness and normal ROM Extremity normal to inspection Peripheral Pulses: Yes pulses 2+ throughout Skin no rashes or lesions noted General Skin Exam: no breakdown, elasticity normal and turgor normal Neuro oriented x3 Motor Exam: strength 5/5 throughout Psych mental status grossly normal Appearance: grossly normal Attitude: calm Activity / Motor Behavior: appropriate eye contact Speech: normal speech Thought Process: normal thought process Thought Content: normal thought content Attention / Concentration: attention grossly intact Memory / Cognition: memory grossly intact Insight: insight good Judgement: judgement good Medical Records Data Medical Nutrition Assessment Dietitian: Malnutrition Criteria Met Start: 08/05/22 16:45 Freq: Status: Active Protocol: Document 08/05/22 17:00 RMA (Rec: 08/05/22 17:00 RMA [id number]) Nutrition Malnutrition Evidence of Malnutrition Exists Yes Malnutrition (severe): Acute Illness/Injury Evidenced By Suboptimal Energy Intake ( Severe),Weight Loss (Severe), Physical Changes (Severe) Clinical Problem Acute Disease or Injury Related Malnutrition Etiology Severe protein-calorie malnutrition in the context of acute illness related to inadequate oral intake and altered GI function with nausea/vomiting Signs/Symptoms as evidenced by BMI 16.1, wt loss~7-8% x past 1-2 weeks, visible cachexia with severe muscle/fat wasting in the face , clavicle, orbital/temporal regions, oral intake meeting less than 50% estimated nutrition needs Status Active Problem Recommendation Dietitian Recommendations/Changes Will liberalize diet to regular/no added salt given malnutrition. Will add ensure pudding BID w/ lunch and dinner. Will add 120 ml ensure plus high protein 4 times per day w / medpass. Adjust ONS as needed once intake established with meals. May need to consider TF support for repletion especially if PO remains poor and inadequate at meals. Lab / Micro Data Result Diagrams: 08/07/22 05:08 08/07/22 05:08 Labs: Laboratory Results - last 24 hr 08/05/22 05:10: WBC 4.9, RBC 6.49 H, Hgb 19.3 H*, Hct 58.1 H, MCV 89.5, MCH 29.7, MCHC 33.2, RDW Std Deviation 46.9 H, RDW Coeff of Sherry 14.8 H, Plt Count 271, MPV 9.5, Immature Gran % (Auto) 0.200, Neut % (Auto) 81.7 H, Lymph % (Auto) 13.9 L, Wilson % (Auto) 2.2, Eos % (Auto) 1.4, Baso % (Auto) 0.6, Absolute Neuts (auto) 4.0, Absolute Lymphs (auto) 0.68 L, Nucleated RBC % 0, Differential Comment SCANNED, Diff Path Review May foll 08/05/22 05:10: Sodium 140, Potassium 3.4 L, Chloride 109 H, Carbon Dioxide 20.0 L, Anion Gap 11, BUN 14, Creatinine 1.29, Estim Creat Clear Calc 36.19, Est GFR (MDRD) Af Amer 70, Est GFR (MDRD) Non-Af 58 L, BUN/Creatinine Ratio 10.9, Glucose 105, Calcium 10.2 H, Total Bilirubin 0.70, AST 13 L, ALT 14 L, Alkaline Phosphatase 110, Troponin I High Sens 7, Total Protein 7.7, Albumin 3.5, Globulin 4.2, Albumin/Globulin Ratio 0.8 L, Lipase 68 L 08/05/22 05:10: B-Natriuretic Peptide 1411.9 H Micro: Microbiology 08/05/22 08:15 Nasal Secretion SARS-CoV-2 Antigen (Rapid) - Final ABG Data ABG results: ABG 08/05/22 10:28 Specimen Type ART Sample Site L Radial pH 7.30 L Bicarbonate Actual 18.9 L Total CO2 20 Base Excess -8 L O2 Saturation 95 ABG pCO2 38.8 ABG pO2 82 Fred Test Positive O2 Delivery Device NRB Liter Flow 15.0 Radiology Impression Abdomen/Pelvis CT 08/05/22 05:10 IMPRESSION: 1. Fibrotic and emphysematous changes in the visualized lungs, consistent with usual interstitial pneumonitis. Suspect overlying pneumonia bilaterally. 2. 5 mm wide and 4 mm wide distal left ureteral calculi in the ureterovesical junction. The more distal calculus might be within a ureterocele. Calculate are nonobstructive with no associated hydronephrosis or hydroureter. 3. Small nonobstructive renal calculi bilaterally. Cortical scarring in both kidneys. Bilateral renal cysts. 4. Atherosclerosis. 5. Mildly prominent bowel gas with a nonspecific nonobstructive pattern.. Electronically Signed: Petar Gonzales MD at 7:17 EDT , Chest X-Ray 08/05/22 05:10 IMPRESSION: 1. Fibrotic and emphysematous changes in the lungs. 2. Pulmonary airspace infiltrates within the mid and lower lung connell bilaterally, suspicious for pneumonia. Electronically Signed: Petar Gonzales MD at 7:04 EDT , Chest CTA 08/05/22 09:36 IMPRESSION: Findings in keeping with diffuse emphysematous changes with bilateral chronic interstitial fibrosis with a superimposed patchy infiltrates in both lungs as described. Electronically Signed: Giovany Root MD at 11:30 EDT , Echocardiogram 08/05/22 14:36 Interpretation Summary The study was technically difficult. Limited views were obtained. Based upon the 2D echocardiographic images obtained there appears to be grossly normal left ventricular size, wall motion, and systolic function. The estimated ejection fraction is 60 %. Mild (1+) mitral valve insufficiency. Mild tricuspid valve insufficiency. Right ventricular systolic pressure estimated to be 50 mmHg compatible with pulmonary hypertension. Unable to assess diastolic dysfunction. Ordering Physician: Catrina Alcala Performed By: Jammie Rhodes RCS Charges/Coding Visit Charges Inpatient E&M: 61390 Init Hosp L2
[2022-08-05] MEDS: Atorvastatin Calcium 20 MG Tablet PO (20:49)
[2022-08-05] MEDS: SACUBITRIL/VALSARTAN 49-51 MG TABLET 1 EACH PO (20:49)
[2022-08-06] VITALS (29 sets, daily range): BP systolic 89–121; BP diastolic 47–103; PULSE 79–103; RESP 14–20; TEMP 36.1–36.7; O2SAT 90–97; BMI 16.0
[2022-08-06 05:55] LABS: Absolute Lymphocyte Count 1.25 X10^3/uL (0.83-4.51); Absolute Neutrophil Count 12.7 X10^3/uL (2.0-7.7); Basophil# 0.07 X10^3/uL; Basophil% 0.5 % (0-1); Eosinophil# 0.16 X10^3/uL; Hematocrit 44.1 % (40-54); Hemoglobin 14.9 g/dL (13.0-16.5); Lymphocyte # 1.25 X10^3/ul (0.83-4.51); Lymphocyte % 8.2 % (19-41); Mean Corp Hgb Conc 33.8 g/dL (32-36); Mean Corpuscular Hgb 29.5 pg (27.0-32.0); Mean Corpuscular Volume 87.3 fL (80-94); Mean Platelet Vol. 9.2 fl (6.2-12.0); Monocyte# 0.82 X10^3/uL; Monocyte% 5.4 % (0-10); NRBC Flagged by Analyzer 0 % (0-5); Neutrophil # 12.68 X10^3/uL (2.7-7.7); POSITIVE MORPHOLOGY YES; Platelet Count 210 K/mm3 (150-450); RBC Distribution Width CV 14.7 % (11.6-14.6); RBC Distribution Width SD 47.2 fl (35.1-43.9); Red Blood Count 5.05 M/mm3 (4.6-6.2); White Blood Count 15.3 K/mm3 (4.4-11.0)
[2022-08-06 06:00] LABS: Differential Indicated SCAN CRITERIA MET
[2022-08-06 06:22] LABS: Differential Comment SCANNED
[2022-08-06 06:28] LABS: Anion Gap 10 (5-15); BUN 33 mg/dL (7-18); BUN/Creat Ratio 16.5 RATIO (10-20); Calcium,Total 8.9 mg/dL (8.5-10.1); Chloride 111 mmol/L (98-107); EST Glomerular Filtration Rate 35 mL/min (>60); Est Glom Filt Rate - Afr Amer 42 mL/min (>60); Estimated Creatinine Clearance 20.99 ml/min; Glucose 79 mg/dL (74-106); Potassium 4.7 mmol/L (3.5-5.1); Sodium Level 141 mmol/L (136-145)
[2022-08-06] MEDS: Ipratropium/Albuterol Sulfate 3 ML AMPUL.NEB INHALATION ×2 (07:14→19:35)
[2022-08-06] MEDS: Furosemide 40 MG/4 ML Vial IV (08:43)
[2022-08-06] MEDS: 0.9% Saline Lock 10 ML Syringe IV ×2 (08:50→10:15)
--- NOTE | 2022-08-06 10:50 | CASEMGMT ---
JOSE ESTRADA Face to Face with patient for initial transition planning/care coordination assessment. RN CM introduced self and role at [facility] [place]. Patient lying in bed, alert and oriented, son at bedside. Patient willing to participate in assessment and is able to answer all questions appropriately. Care providers, pharmacy, and demographics verified. Patient wishes to discharge home, denies need for home health at this time. Patient states he has no further needs or concerns at this time. CM to follow for discharge planning needs that may arise. PCP: Yamile Ayala [facility] Specialists: none Preferred Pharmacy: [place], [facility] [place] retail Insurance: [place], [facility] Prescription Benefit: [place] Living Will/HPOA: yes, son Ga Avalos, HPOA LNOK: son Living Arrangements: Patient lives with son in single story home with 7 steps and railing to enter the home. Patient states he is independent and able to ambulate stairs. Transportation: self, son DME/HHC: Patient denies DME in the home. [facility] Patient staets he smokes about 5 cigarettes daily, denied wanting to quit. Disposition Plan: Patient to discharge home with family support and follow-up plans in place. Edwina CROSS, RN, CM
--- NOTE | 2022-08-06 12:30 | IMM_PTH ---
PATIENT: INNA CEE LOC: [facility] U#:[id number] AGE/SX: 77/M ROOM: [facility] RE08/05/[address]: Dr. Tommy Clifton, : 1945 BED: 1 DIS: 08/08/2022 SPEC #: [id number] RECD: 08/07/22 12:39 STATUS: GEORGE REQ #: [id number] DEENA: 08/06/22 12:[address]: Ra aMsonhsaan DEPT: IMMUNOHISTOCHEMISTRY RECD BY: Marj Rubio ENTERED: 08/07/22 12:40 SP TYPE: IMMUNO OTHR DR: Dr. Tommy Clifton, [facility] Tissues: A - Stomach, NOS Procedures: H Pylori (initial) PHYSICIAN & INSTITUTION [place] [id number] SPECIMEN INFORMATION: Tissue Source: A ? Gastric body biopsy Clinical Info: Vomiting Specimen Number: [id number] CPT code: 11115 METHODOLOGY: Deparaffinized sections of prefer/formalin-fixed tissue or PAP/DQ stained slides are incubated with monoclonal/polyclonal antibodies/oligonucleotide probes. Localization is made via biotin free immunoperoxidase method. Appropriate controls are performed and reacted as expected. Results on target cell population are indicated in the following table: RESULTS: ANTIBODY / CLONE RESULT Block A H Pylori (polyclonal) negative These tests were developed and their performance characteristics determined by [facility]. They may not have been cleared or approved by the U.S. Food and Drug Administration. The FDA has determined that such clearance or approval is not necessary. The above immunohistochemical/dualISH markers are ordered and reviewed by the Pathologist. INTERPRETATION: A. Gastric body, biopsy: Negative for Helicobacter pylori organisms. AM:mica 08/10/2022
--- NOTE | 2022-08-06 12:30 | EGD_PTH ---
PATIENT: INNA CEE LOC: [facility] U#:[id number] AGE/SX: 77/M ROOM: [facility] RE08/05/[address]: Dr. Tommy Clifton DO : 1945 BED: 1 DIS: 08/08/2022 SPEC #: [id number] RECD: 08/06/22 15:03 STATUS: GEORGE REAlea #: [id number] DEENA: 08/06/22 12:[address]: Adrian Cuevas DEPT: SURGICAL PATHOLOGY RECD BY: Dyan Vu ENTERED: 08/07/22 09:49 SP TYPE: EGD BIOPSY OT DR: DO Dr. Adrian Branham DO [facility] Tissues: A - Gastric mucous membrane B - Gastric mucous membrane Procedures: Surgery Specimen Level IV Comments: @ Ordering doctor for SUIV edited from to @ by NETTIE at 08/07/22 1240 @ Submitting doctor edited from to @ by BRIENOD at 08/07/22 1240 HEADER OPERATION: EGD ([facility] biopsy PRE-OP DIAGNOSIS: Vomiting TISSUE SUBMITTED: A ? Gastric body biopsy, B ? Gastric cardia biopsy MICROSCOPIC DIAGNOSIS A. Gastric body, biopsy: Minimal chronic inflammation. See comment. B. Gastric cardia, biopsy: Focal changes consistent with fundic gland polyp. Mild chronic inflammation. SJ:mica 08/10/2022 COMMENT A - The results of immunohistochemistry for Helicobacter pylori will be reported separately ([id number]). MICROSCOPIC DESCRIPTION Slides are reviewed. GROSS DESCRIPTION A - Received in fixative is one container labeled with the patient's name and designated gastric body biopsy. The specimen consists of one irregular fragment of light villeda soft tissue that measures 0.3 x 0.3 x 0.1 cm. The specimen is totally submitted in one cassette. B - Received in fixative is one container labeled with the patient's name and designated gastric cardia biopsy. The specimen consists of two irregular fragments of light villeda soft tissue that in aggregate measure 0.5 x 0.4 x 0.1 cm. The specimen is totally submitted in one cassette. / SOFI:mica 08/07/2022 TC:3 CPT: 19645 x2
[2022-08-06 13:24] LABS: Pathologist Review Reviewed
[2022-08-06] MEDS: Ensure Plus High Protein 120 ML LIQUID PO ×2 (14:53→17:53)
[2022-08-06] MEDS: Pantoprazole Sodium 40 MG Tablet PO (15:02)
[2022-08-06] MEDS: Aspirin E.C. 81 MG Tablet PO (15:02)
[2022-08-06] MEDS: Metoprolol(XL)Succ 200 MG Tablet PO (15:02)
--- NOTE | 2022-08-06 15:03 | OP.EGD_ITS ---
Patient Name: Nathaniel Avalos Procedure Date: 08/06/2022 1:31 PM Date of : 1945 Age: 77 Procedure: Upper GI endoscopy Indications: Epigastric abdominal pain, Heartburn, Suspected esophageal reflux Providers: Adrian Cuevas DO Medicines: Monitored Anesthesia Care Patient Profile: This is a 77 year old male. Refer to note in patient chart for documentation of history and physical. Patient has symptoms. Complications: No immediate complications. Procedure: Pre-Anesthesia Assessment: - Prior to the procedure, a History and Physical was performed, and patient medications and allergies were reviewed. The patient is competent. The risks and benefits of the procedure and the sedation options and risks were discussed with the patient. All questions were answered and informed consent was obtained. Patient identification and proposed procedure were verified by the physician in the pre-procedure area. Mental Status Examination: alert and oriented. Airway Examination: normal oropharyngeal airway and neck mobility. Respiratory Examination: clear to auscultation. CV Examination: normal. Prophylactic Antibiotics: The patient does not require prophylactic antibiotics. Prior Anticoagulants: The patient has taken no previous anticoagulant or antiplatelet agents. ASA Grade Assessment: II - A patient with mild systemic disease. After reviewing the risks and benefits, the patient was deemed in satisfactory condition to undergo the procedure. The anesthesia plan was to use monitored anesthesia care (MAC). Immediately prior to administration of medications, the patient was re-assessed for adequacy to receive sedatives. The heart rate, respiratory rate, oxygen saturations, blood pressure, adequacy of pulmonary ventilation, and response to care were monitored throughout the procedure. The physical status of the patient was re-assessed after the procedure. After obtaining informed consent, the endoscope was passed under direct vision. Throughout the procedure, the patient's blood pressure, pulse, and oxygen saturations were monitored continuously. The gastroscope was introduced through the mouth, and advanced to the second part of duodenum. The upper GI endoscopy was accomplished without difficulty. The patient tolerated the procedure well. Scope In: 1:40:30 PM Scope Out: 1:46:39 PM Total Procedure Duration Time 0 hours 6 minutes 9 seconds Findings: There was some old blood in the mouth. LA Grade A (one or more mucosal breaks less than 5 mm, not extending between tops of 2 mucosal folds) esophagitis with no bleeding was found 36 to 38 cm from the incisors. A medium-sized hiatal hernia was present. A small amount of food (residue) was found in the gastric fundus. Bilious fluid was found in the gastric body. Food (residue) was found in the second portion of the duodenum. Scattered moderate inflammation characterized by congestion (edema) and erosions was found in the gastric body. Biopsies were taken with a cold forceps for histology. Verification of patient identification for the specimen was done. Estimated blood loss was minimal. Severe inflammation characterized by erosions and erythema was found on the greater curvature of the stomach. Biopsies were taken with a cold forceps for histology. Verification of patient identification for the specimen was done. Estimated blood loss was minimal. Impression: - There was some old blood in the mouth. - LA Grade A reflux esophagitis. - Medium-sized hiatal hernia. - A small amount of food (residue) in the stomach. - Bilious gastric fluid. - Retained food in the duodenum. - Gastritis. Biopsied. Recommendation: - Discharge patient to home. - Resume previous diet. - Continue present medications. - Await pathology results. -Gastric emptying study -Upper GI with small bowel follow-through to look for signs of obstruction Procedure Code(s): --- Professional --- 91552, Esophagogastroduodenoscopy, flexible, transoral; with biopsy, single or multiple CPT copyright 2017 [employer]. All rights reserved. The codes documented in this report are preliminary and upon payroll accountant review may be revised to meet current compliance requirements. Adrian Cuevas DO 08/06/2022 3:02:38 PM This report has been signed electronically. Number of Addenda: 0 Note Initiated On: 08/06/2022 1:31 PM
--- NOTE | 2022-08-06 15:03 | OP.CCLET_ITS ---
08/06/2022 [facility] Re : Upper GI endoscopy procedure for [facility] This procedure was performed on July. My impressions and recommendations are as follows: Impressions : - There was some old blood in the mouth. - LA Grade A reflux esophagitis. - Medium-sized hiatal hernia. - A small amount of food (residue) in the stomach. - Bilious gastric fluid. - Retained food in the duodenum. - Gastritis. Biopsied. Recommendations : - Discharge patient to home. - Resume previous diet. - Continue present medications. - Await pathology results. -Gastric emptying study -Upper GI with small bowel follow-through to look for signs of obstruction My findings are described in the full procedure note, which is enclosed. If I can be of further assistance, please feel free to contact me at . Sincerely, Adrian Friend, 08/06/2022 3:02:38 PM This report has been signed electronically.
[2022-08-06] MEDS: Enoxaparin 30 MG/0.3 ML Syringe SC (15:06)
--- NOTE | 2022-08-06 15:53 | PN.HOSP_ITS ---
Subjective Subjective Patient was seen and examined today, he underwent an EGD today which showed evidence of gastritis and reflux esophagitis. There is also noted to be food residue in the stomach and retained food in the duodenum. At this time, patient remains on 5 L of oxygen via nasal cannula. White blood cell count today was 15.3. I talked with the patient and his son today who was in the room at the time my examination, patient would like to be discharged home soon as possible because he has a pet at home that he is worried about, I emphasized that he may need home oxygen set up, patient stated that he did not think he needed oxygen and I told him that he is requiring more than low-flow oxygen at this time. Objective Data Objective Data Vital Signs: Vital Signs Temp Pulse Resp BP Pulse Ox O2 Del Method O2 Flow Rate 97.2 F L 103 H 15 95/56 L 92 Nasal Cannula 5 08/06/22 14:54 08/06/22 15:10 08/06/22 14:54 08/06/22 15:02 08/06/22 15:32 08/06/22 15:32 08/06/22 15:32 Oxygen Flow Rate (L/min) 5 Oxygen Delivery Method Nasal Cannula Weight: 46.5 kg Body Mass Index (BMI) 16.0 Intake & Output: Intake and Output for Last 24 Hours 08/04/22 08/05/22 08/06/22 23:59 23:59 23:59 Intake Total 1903.33 / 1903.33 180 / 180 Output Total 800 / 800 600 / 600 Balance 1103.33 / 1103.33 -420 / -420 Medical Nutrition Assessment Dietitian: Malnutrition Criteria Met Start: 08/05/22 16:45 Freq: Status: Active Protocol: Document 08/05/22 17:00 RMA (Rec: 08/05/22 17:00 RMA [id number]) Nutrition Malnutrition Evidence of Malnutrition Exists Yes Malnutrition (severe): Acute Illness/Injury Evidenced By Suboptimal Energy Intake ( Severe),Weight Loss (Severe), Physical Changes (Severe) Clinical Problem Acute Disease or Injury Related Malnutrition Etiology Severe protein-calorie malnutrition in the context of acute illness related to inadequate oral intake and altered GI function with nausea/vomiting Signs/Symptoms as evidenced by BMI 16.1, wt loss~7-8% x past 1-2 weeks, visible cachexia with severe muscle/fat wasting in the face , clavicle, orbital/temporal regions, oral intake meeting less than 50% estimated nutrition needs Status Active Problem Recommendation Dietitian Recommendations/Changes Will liberalize diet to regular/no added salt given malnutrition. Will add ensure pudding BID w/ lunch and dinner. Will add 120 ml ensure plus high protein 4 times per day w / medpass. Adjust ONS as needed once intake established with meals. May need to consider TF support for repletion especially if PO remains poor and inadequate at meals. Lab / Micro Data Result Diagrams: 08/06/22 05:43 08/06/22 05:43 Labs: Laboratory Results - last 24 hr 08/05/22 05:10: Diff Path Review Reviewed 08/06/22 05:43: WBC 15.3 H, RBC 5.05, Hgb 14.9, Hct 44.1, MCV 87.3, MCH 29.5, MCHC 33.8, RDW Std Deviation 47.2 H, RDW Coeff of Sherry 14.7 H, Plt Count 210, MPV 9.2, Immature Gran % (Auto) 1.900 H, Neut % (Auto) 83.0 H, Lymph % (Auto) 8.2 L, [place] % (Auto) 5.4, Eos % (Auto) 1.0, Baso % (Auto) 0.5, Absolute Neuts (auto) 12.7 H, Absolute Lymphs (auto) 1.25, Nucleated RBC % 0, Differential Comment SCANNED 08/06/22 05:43: Sodium 141, Potassium 4.7, Chloride 111 H, Carbon Dioxide 20.0 L , Anion Gap 10, BUN 33 H, Creatinine 2.00 H, Estim Creat Clear Calc 20.99, Est GFR (MDRD) Af Amer 42 L, Est GFR (MDRD) Non-Af 35 L, BUN/Creatinine Ratio 16.5, Glucose 79, Calcium 8.9 Micro: Microbiology 08/05/22 17:00 Interface Orders Respiratory Panel (PCR) - Final 08/05/22 08:15 Nasal Secretion SARS-CoV-2 Antigen (Rapid) - Final Radiography Diagnostic Testing: Radiology Impression Echocardiogram 08/05/22 14:36 Interpretation Summary The study was technically difficult. Limited views were obtained. Based upon the 2D echocardiographic images obtained there appears to be grossly normal left ventricular size, wall motion, and systolic function. The estimated ejection fraction is 60 %. Mild (1+) mitral valve insufficiency. Mild tricuspid valve insufficiency. Right ventricular systolic pressure estimated to be 50 mmHg compatible with pulmonary hypertension. Unable to assess diastolic dysfunction. Ordering Physician: Catrina Alcala Performed By: Jammie Rhodes RCS Physical Exam Narrative On examination he appeared cachectic and unwell. Vital signs as documented. Skin warm and dry and without overt rashes. Neck without JVD, neck was supple, trachea midline, thyroid was normal. Lungs-there were inspiratory wheezes noted at the right lung base along with decreased breath sounds, left lung base breath sounds were diminished. Heart exam notable for regular rhythm, normal sounds and absence of murmurs, rubs or gallops. Abdomen unremarkable and without evidence of organomegaly, masses, or abdominal aortic enlargement.? Bowel sounds are present, abdomen is not distended.? Extremities nonedematous, no cyanosis was noted, no clubbing was noted.? Neuro: Cranial nerves II through XII are grossly intact, no focal motor deficits were noted, sensation to light touch and pinprick intact, motor exam 5/5 throughout.? Psych: Patient is alert and oriented x3, he does not appear anxious or depressed, he does not appear agit ated. Assessment & Plan Assessment/Plan (1) Aspiration pneumonia: PLAN: Plan #1 aspiration pneumonia-patient will continue on meropenem, repeat CBC will be obtained tomorrow #2 acute hypoxic respiratory failure-secondary to suspected aspiration pneumonia and possibly complicated by underlying interstitial fibrosis-pulse ox will be monitored , patient is currently on nasal cannula oxygen at the time of this dictation, he most probably will [facility]. #3 acute diastolic CHF-patient gives a history to this examiner today that at one time his ejection fraction was 20% and he was placed on medication, this is probably Entresto which she currently takes. Etiology of the current patient's cardiomyopathy is unknown. I reduced the patient's IV Lasix today due to his elevated creatinine. #4 interstitial fibrosis-complicates care, management, recovery, and prognosis #5 persistent intermittent nausea and vomiting along with diarrhea-patient will undergo a CT of the abdomen and pelvis tomorrow with oral contrast. #6 severe protein and caloric malnutrition-patient will be seen by nutritional services #7 gastritis-patient is on a PPI #8 cardiomyopathy-type unknown, patient is being seen at the [facility] for his medical care, continue patient's home medications at this time. Charges/Coding Visit Charges Inpatient E&M: 18994 Subs Hosp L2
[2022-08-06] MEDS: Atorvastatin Calcium 20 MG Tablet PO (21:07)
[2022-08-06] MEDS: SACUBITRIL/VALSARTAN 49-51 MG TABLET 1 EACH PO (21:07)
[2022-08-07] VITALS (14 sets, daily range): BP systolic 96–123; BP diastolic 65–67; PULSE 66–132; RESP 16–20; TEMP 36.4–36.8; O2SAT 86–96
--- NOTE | 2022-08-07 05:55 | CT_ITS ---
STUDY: CT ABDOMEN AND PELVIS WITHOUT CONTRAST REASON FOR EXAM: Male, 77 years old. Nausea and vomiting. TECHNIQUE: Transaxial images were obtained from the dome of the diaphragm to the symphysis pubis with oral contrast, and without intravenous contrast. Sagittal and coronal images were reconstructed. Individualized dose optimization techniques were used for this CT. COMPARISON: 07/28/2022 at 6:39 AM FINDINGS: Partially visualized lower chest: Multifocal pneumonia and severe emphysema partially visible, similar to prior. Liver: No concerning lesions. Gallbladder and biliary tree: No visible gallstones. No pericholecystic inflammation. No biliary ductal dilation. Pancreas: No pancreatic lesions or inflammation. Spleen: Normal size, no splenic lesions. Adrenal glands: No concerning masses. Kidneys and ureters: No hydronephrosis. No concerning masses. No ureteral dilation. Bilateral renal cysts, largest 5 cm diameter in the right renal pelvis, and small nonobstructing bilateral renal stones, and minimal cortical scarring bilaterally, similar to prior. Distal left ureteral stones also not significantly changed. There remains no hydroureter. Bowel: Appendix not identified. No evidence of appendicitis. No obstruction or inflammation of the bowel. Diffuse distention of the bowel. Scattered left colonic diverticula, no diverticulitis. Urinary bladder: No apparent stones or filling defects. Distended with IV contrast from the recent previous studies. Wall mildly thickened and trabeculated. Reproductive: Prostate mildly enlarged. Vascular: No abdominal aortic aneurysm. Retroperitoneal and peritoneal spaces: No ascites or free air. No retroperitoneal lesions. Severe calcific atherosclerosis of the distal abdominal aorta and iliac arteries again demonstrated. Osseous: No acute osseous abnormality. Multilevel degenerative changes lumbar spine again demonstrated Abdominal and pelvic wall: No concerning findings. Any findings described in the findings sections and not included in the impression are incidental and do not require imaging follow-up. CT/Abdomen/Pel W ORAL Cont Only IMPRESSION: Diffuse distention of large and small bowel compatible with ileus. No transition point to suggest obstruction. Enteric contrast reaches the distal ileum. Multifocal pneumonia and severe emphysema partially visible, similar to prior. Nonobstructing renal stones, distal left ureteral stones but with no more proximal hydroureter, other chronic findings similar to prior. Electronically Signed: Vernon Rich MD at 7:32 EDT ,
[2022-08-07 05:58] LABS: Hemoglobin 14.8 g/dL (13.0-16.5); Mean Corp Hgb Conc 33.6 g/dL (32-36); Mean Corpuscular Volume 86.1 fL (80-94); POSITIVE COUNT YES; POSITIVE MORPHOLOGY YES; Platelet Count 200 K/mm3 (150-450); RBC Distribution Width CV 14.5 % (11.6-14.6); RBC Distribution Width SD 45.8 fl (35.1-43.9); Red Blood Count 5.11 M/mm3 (4.6-6.2); White Blood Count 18.3 K/mm3 (4.4-11.0)
[2022-08-07 06:12] LABS: Differential Indicated MANUAL DIFF
[2022-08-07 06:17] LABS: Total Cells Counted 100 (MANUAL DIFF)
[2022-08-07 06:18] LABS: Metamyelocyte 3 % (0-1); Myelocyte 1 % (0-0); Neutrophil-Band 15 % (0-5)
[2022-08-07 06:19] LABS: Absolute Neutrophil Count 15.4 X10^3/uL (2.0-7.7); Lymphocyte 8 % (19-41); Monocyte 4 % (0-10); Neutrophil # 15.36 X10^3/uL (2.7-7.7); Neutrophil-Segmented 69 % (47-70)
[2022-08-07 06:20] LABS: Absolute Lymphocyte Count 1.46 X10^3/uL (0.83-4.51); Lymphocyte # 1.46 X10^3/ul (0.83-4.51); Platelet Estimate ADEQUATE (ADEQ); Red Cell Morphology NORM C+C NORMAL (NORM C&C)
[2022-08-07 06:25] LABS: Anion Gap 9 (5-15); BUN 32 mg/dL (7-18); BUN/Creat Ratio 25.6 RATIO (10-20); Calcium,Total 9.6 mg/dL (8.5-10.1); Chloride 107 mmol/L (98-107); Creatinine, Serum 1.25 mg/dL (0.70-1.30); EST Glomerular Filtration Rate 60 mL/min (>60); Est Glom Filt Rate - Afr Amer 72 mL/min (>60); Estimated Creatinine Clearance 33.58 ml/min; Glucose 112 mg/dL (74-106); Potassium 3.8 mmol/L (3.5-5.1); Sodium Level 139 mmol/L (136-145)
[2022-08-07] MEDS: Aspirin E.C. 81 MG Tablet PO (09:02)
[2022-08-07] MEDS: 0.9% Saline Lock 10 ML Syringe IV ×2 (09:02→20:35)
[2022-08-07] MEDS: Enoxaparin 30 MG/0.3 ML Syringe SC (09:02)
[2022-08-07] MEDS: Pantoprazole Sodium 40 MG Tablet PO (09:02)
[2022-08-07] MEDS: Metoprolol(XL)Succ 200 MG Tablet PO (09:40)
[2022-08-07] MEDS: SACUBITRIL/VALSARTAN 49-51 MG TABLET 1 EACH PO ×2 (09:40→20:35)
[2022-08-07] MEDS: Ondansetron 4 MG/2 ML Vial IV (09:40)
[2022-08-07] MEDS: Ipratropium/Albuterol Sulfate 3 ML AMPUL.NEB INHALATION ×2 (10:49→19:29)
[2022-08-07 13:13] LABS: Pathologist Review Reviewed
[2022-08-07] MEDS: Ensure Plus High Protein 120 ML LIQUID PO (14:06)
--- NOTE | 2022-08-07 14:30 | CASEMGMT ---
Addendum entered by Edwina Arriola 08/07/22 14:42: Pt provided with [facility] pulse ox at discharge. Kathy GARCIA CM Original Note: Per Serene RN, pt qualifies for 3L continuous home oxygen at discharge. This RN CM to room to discuss with pt. Pt states [facility] use [facility] but is willing to use his [facility] A/B if cannot [facility]. Call to Kathia at [place] [facility] and she states as long as she can get paperwork by 1530, she can get it set up for pt for tomorrow. [facility]paperwork for [facility] completed and signed by pt/physician and faxed to [place] [facility] at this time. Pt/therapy state no need for any further therapy at discharge. Green sheet left on chart with [facility] contact info so they can be notified on pt d/c for e-tank delivery and set up at home. Pt provided copies of [facility] with contact info for [facility] and [facility]. Pt voices no further questions/concerns/needs. Kathy GARCIA CM
--- NOTE | 2022-08-07 19:19 | PN.HOSP_ITS ---
Subjective Subjective Seen and examined today, he requires 3 L via nasal cannula at rest and with activity to maintain his pulse ox. Patient's white blood cell count was elevated at 18.3 today, he remains afebrile, I have elected to place him back on oral Lasix starting tomorrow morning. Objective Data Objective Data Vital Signs: Vital Signs Temp Pulse Resp BP Pulse Ox O2 Del Method O2 Flow Rate 97.6 F L 83 18 99/65 96 Nasal Cannula 3 08/07/22 15:00 08/07/22 15:00 08/07/22 15:00 08/07/22 15:00 08/07/22 15:00 08/07/22 15:00 08/07/22 15:00 Oxygen Flow Rate (L/min) [ 3 AMBULATING with Oxygen #2] Oxygen Flow Rate (L/min) [ 2 AMBULATING with Oxygen #1] Oxygen Flow Rate (L/min) 3 Oxygen Delivery Method Nasal Cannula Weight: 46.5 kg Body Mass Index (BMI) 16.0 Intake & Output: Intake and Output for Last 24 Hours 08/05/22 08/06/22 08/07/22 23:59 23:59 23:59 Intake Total 1903.33 / 1903.33 650 / 650 960 / 960 Output Total 800 / 800 1450 / 1450 400 / 400 Balance 1103.33 / 1103.33 -800 / -800 560 / 560 Medical Nutrition Assessment Dietitian: Malnutrition Criteria Met Start: 08/05/22 16:45 Freq: Status: Active Protocol: Document 08/05/22 17:00 RMA (Rec: 08/05/22 17:00 RMA [id number]) Nutrition Malnutrition Evidence of Malnutrition Exists Yes Malnutrition (severe): Acute Illness/Injury Evidenced By Suboptimal Energy Intake ( Severe),Weight Loss (Severe), Physical Changes (Severe) Clinical Problem Acute Disease or Injury Related Malnutrition Etiology Severe protein-calorie malnutrition in the context of acute illness related to inadequate oral intake and altered GI function with nausea/vomiting Signs/Symptoms as evidenced by BMI 16.1, wt loss~7-8% x past 1-2 weeks, visible cachexia with severe muscle/fat wasting in the face , clavicle, orbital/temporal regions, oral intake meeting less than 50% estimated nutrition needs Status Active Problem Recommendation Dietitian Recommendations/Changes Will liberalize diet to regular/no added salt given malnutrition. Will add ensure pudding BID w/ lunch and dinner. Will add 120 ml ensure plus high protein 4 times per day w / medpass. Adjust ONS as needed once intake established with meals. May need to consider TF support for repletion especially if PO remains poor and inadequate at meals. Lab / Micro Data Result Diagrams: 08/08/22 05:05 08/07/22 05:08 Labs: Laboratory Results - last 24 hr 08/07/22 05:08: WBC 18.3 H, RBC 5.11, Hgb 14.8, Hct 44.0, MCV 86.1, MCH 29.0, MC HC 33.6, RDW Std Deviation 45.8 H, RDW Coeff of Sherry 14.5, Plt Count 200, MPV 10.0, Neut % (Auto) Not Reportable, Absolute Neuts (auto) 15.4 H, Absolute Ly mphs (auto) 1.46, Total Counted 100, Neutrophils % (Manual) 69, Band Neutrophils % 15 H, Lymphocytes % (Manual) 8 L, Monocytes % (Manual) 4, Metamyelocytes % 3 H , Myelocytes % 1 H, Diff Path Review Reviewed, Platelet Estimate ADEQUATE, RBC Morphology NORM C+C 08/07/22 05:08: Sodium 139, Potassium 3.8, Chloride 107, Carbon Dioxide 23.0, Anion Gap 9, BUN 32 H, Creatinine 1.25, Estim Creat Clear Calc 33.58, Est GFR (MDRD) Af Amer 72, Est GFR (MDRD) Non-Af 60, BUN/Creatinine Ratio 25.6 H, Glucose 112 H, Calcium 9.6 Micro: Microbiology 08/05/22 17:00 Interface Orders Respiratory Panel (PCR) - Final 08/05/22 08:15 Nasal Secretion SARS-CoV-2 Antigen (Rapid) - Final Radiography Diagnostic Testing: Radiology Impression Abdomen CT 08/07/22 05:55 IMPRESSION: Diffuse distention of large and small bowel compatible with ileus. No transition point to suggest obstruction. Enteric contrast reaches the distal ileum. Multifocal pneumonia and severe emphysema partially visible, similar to prior. Nonobstructing renal stones, distal left ureteral stones but with no more proximal hydroureter, other chronic findings similar to prior. Electronically Signed: Vernon Rich MD at 7:32 EDT Reading Location ID and State: [address] [place] [address] Tel , Service support , Physical Exam Narrative On examination he appeared cachectic, he did not appear to be toxic, he did not exhibit any acute distress. Vital signs as documented. Skin warm and dry and without overt rashes. Neck without JVD, neck was supple, trachea midline, thyroid was normal. Lungs-there were inspiratory wheezes noted at the right lung base along with decreased breath sounds, left lung base breath sounds were diminished. Heart exam notable for regular rhythm, normal sounds and absence of murmurs, rubs or gallops. Abdomen unremarkable and without evidence of organomegaly, masses, or abdominal aortic enlargement.? Bowel sounds are present, abdomen is not distended.? Extremities nonedematous, no cyanosis was noted, no clubbing was noted.? Neuro: Cranial nerves II through XII are grossly intact, no focal motor deficits were noted, sensation to light touch and pinprick intact, motor exam 5/5 throughout.? Psych: Patient is alert and orie nted x3, he does not appear anxious or depressed, he does not appear agitated. Assessment & Plan Assessment/Plan (1) Aspiration pneumonia: PLAN: Plan #1 aspiration pneumonia-patient will continue on meropenem, repeat CBC will be obtained tomorrow #2 acute hypoxic respiratory failure-secondary to suspected aspiration pneumonia and possibly complicated by underlying interstitial fibrosis-pulse ox will be monitored , patient is currently on nasal cannula oxygen at the time of this dictation, he most probably will need [facility]. #3 acute diastolic CHF-patient gives a history to this examiner today that at one time his ejection fraction was 20% and he was placed on medication, this is probably Entresto which she currently takes.? Etiology of the current patient's cardiomyopathy is unknown.? I reduced the patient's IV Lasix today due to his el evated creatinine. #4 interstitial fibrosis-complicates care, management, recovery, and prognosis #5 persistent intermittent nausea and vomiting along with diarrhea-patient will undergo a CT of the abdomen and pelvis tomorrow with oral contrast. #6 severe protein and caloric malnutrition-as evidenced by a BMI of 16.1, weight loss of approximately 7 to 8% over the past 1 to 2 weeks, visible cachexia with severe muscle/fat wasting in the face, clavicle, orbital/temporal regions, and oral intake meeting less than 50% of estimated nutritional needs-diet was liberalized to regular no added salt, Ensure pudding twice daily with lunch and dinner was added, 120 mL of Ensure Plus high-protein 4 times a day was given with med Pass. #7 gastritis-patient is on a PPI #8 cardiomyopathy-type unknown, patient is being seen at the [facility] for his medical care, continue patient's home medications at this time. #9 emphysema Charges/Coding Visit Charges Inpatient E&M: 26129 Subs Hosp L3
[2022-08-07] MEDS: Atorvastatin Calcium 20 MG Tablet PO (20:35)
[2022-08-07] MEDS: Acetaminophen 325 MG Tablet 650 MG PO (20:36)
[2022-08-08] VITALS (9 sets, daily range): BP systolic 96–111; BP diastolic 61–70; PULSE 78–125; RESP 16; TEMP 36.4–37; O2SAT 90–96
[2022-08-08 06:08] LABS: Absolute Lymphocyte Count 1.37 X10^3/uL (0.83-4.51); Absolute Neutrophil Count 17.1 X10^3/uL (2.0-7.7); Basophil# 0.06 X10^3/uL; Basophil% 0.3 % (0-1); Eosinophil# 0.14 X10^3/uL; Eosinophils% 0.7 % (0-5); Hematocrit 43.3 % (40-54); Hemoglobin 14.4 g/dL (13.0-16.5); Lymphocyte # 1.37 X10^3/ul (0.83-4.51); Lymphocyte % 6.9 % (19-41); Mean Corp Hgb Conc 33.3 g/dL (32-36); Mean Corpuscular Hgb 28.8 pg (27.0-32.0); Mean Corpuscular Volume 86.6 fL (80-94); Mean Platelet Vol. 10.4 fl (6.2-12.0); Monocyte# 0.98 X10^3/uL; NRBC Flagged by Analyzer 0 % (0-5); Neutrophil # 17.11 X10^3/uL (2.7-7.7); Neutrophil % 86.8 % (47-70); Platelet Count 213 K/mm3 (150-450); RBC Distribution Width CV 14.4 % (11.6-14.6); RBC Distribution Width SD 45.9 fl (35.1-43.9); White Blood Count 19.7 K/mm3 (4.4-11.0)
[2022-08-08] MEDS: Ipratropium/Albuterol Sulfate 3 ML AMPUL.NEB INHALATION ×2 (07:05→10:21)
[2022-08-08] MEDS: Aspirin E.C. 81 MG Tablet PO (09:34)
[2022-08-08] MEDS: SACUBITRIL/VALSARTAN 49-51 MG TABLET 1 EACH PO (09:34)
[2022-08-08] MEDS: Pantoprazole Sodium 40 MG Tablet PO (09:34)
[2022-08-08] MEDS: Metoprolol(XL)Succ 200 MG Tablet PO (09:34)
[2022-08-08] MEDS: Furosemide 40 MG Tablet PO (09:35)
--- NOTE | 2022-08-08 11:00 | RAD_ITS ---
EXAM: XR CHEST, 2 VIEWS CLINICAL INDICATION: pneumonia TECHNIQUE: Frontal and lateral views of the chest. This report was created using [employer] report generation technology. COMPARISON: XR Chest dated august 05 2022 FINDINGS: LUNGS AND PLEURAL SPACES: The prominent diffuse emphysematous changes of the lungs again noted. Persistent airspace opacification of both lower lobes and right upper lobe. Right middle lobe component appears improved. No pneumothorax. Small right pleural effusion. HEART: Normal heart size. MEDIASTINUM: No mediastinal or hilar mass. BONES/JOINTS: No acute abnormality. SOFT TISSUES: Normal. TUBES, LINES AND DEVICES: Loop recorder in place. RAD/Chest PA and Lateral IMPRESSION: Mild improvement of the right middle lobe pneumonia. No other change. Electronically Signed: Italo Damon MD at 11:18 EDT ,
--- NOTE | 2022-08-08 11:33 | PCM.DC ---
Discharge Instructions Diet Discharge Diet: No restrictions Activity Discharge Activity: Return to Normal Activity Weight Bearing Status: Full weight bearing Follow Up Care Test Results: Test results from this visit will be discussed in further detail at your follow-up appointment, if applicable. Discharge Plan Admission Admit Date/Time: 08/05/22 09:27 Primary Reason for Your Visit: pneumonia, diastolic heart failure Attending Provider: Tommy Clifton Primary Care Provider: [facility],[place] Consulting Providers: Friend,Adrian Instructions Additional Instructions / Restrictions: wear 3 liters oxygen continuously follow up regarding your lung disease(emphysema) at the [place] Discharge Orders/Prescriptions Prescriptions: New furosemide 40 mg Tablet 40 mg PO DAILY Qty: 30 0RF levofloxacin 500 mg tablet 500 mg PO DAILY Qty: 5 0RF Rx Instructions: start today Continued metoprolol succinate 200 mg Tablet Extended Release 24 Hr 200 mg PO DAILY aspirin 81 mg Tablet,Delayed Release (Dr/Ec) 81 mg PO DAILY simvastatin 40 mg Tablet 40 mg PO QHS omeprazole 20 mg Capsule,Delayed Release(Dr/Ec) 40 mg PO DAILY albuterol sulfate 90 mcg/actuation Hfa Aerosol Inhaler 2 puff INHALATION Q6H PRN (Reason: Wheezing) magnesium 200 mg Tablet 420 mg PO BID tiotropium bromide 2.5 mcg/actuation Mist 2 puff INHALATION DAILY sacubitril-valsartan 49-51 mg Tablet 1 tab PO BID triamcinolone acetonide 0.1 % Cream 1 applic TOPICAL BID carbamide peroxide 6.5 % Drops 5 - 10 drp RIGHT EAR Q12H Discontinued fluconazole 150 mg Tablet 150 mg PO DAILY Referrals / Follow Up: [facility] [Primary Care Provider] - Within 2 Weeks Disposition Disposition (needs filled in before D/C Order can be placed): Home, Self Care
--- NOTE | 2022-08-08 11:45 | DS.PCM_ITS ---
Providers Date of Admission: 08/05/22 Date of Discharge: 08/08/22 Primary Care Physician: [facility] Consultations 08/05/22 10:40 Consult: Gastroenterology Routine Consulting Provider: Ra Masonhsaan Reason for Consult: Recurrent vomiting, abd pain EMERGENT Consult: No MD Notified: Yes Date Notified: 08/05/22 Time Notified: 10:40 Method of Notification: Verbal Reason For Visit: HYPOXEMIA,ASPIRATION PNEUMONIA Diagnosis Discharge Diagnosis (1) Aspiration pneumonia: Status: Acute Code(s): J69.0 - Pneumonitis due to inhalation of food and vomit (2) Vomiting: Status: Acute Code(s): R11.10 - Vomiting, unspecified Plan #1 aspiration pneumonia-patient will continue on meropenem, repeat CBC will be obtained tomorrow #2 acute hypoxic respiratory failure-secondary to suspected aspiration pneumonia and possibly complicated by underlying interstitial fibrosis and diastolic CHF- pulse ox will be monitored , patient is currently on nasal cannula oxygen at the time of this dictation, he most probably will need home O2 set up through the [facility] at the time of discharge. #3 acute diastolic CHF-patient gives a history to this examiner today that at one time his ejection fraction was 20% and he was placed on medication, this is probably Entresto which she currently takes. Etiology of the current patient's cardiomyopathy is unknown. I reduced the patient's IV Lasix today due to his elevated creatinine. #4 interstitial fibrosis-complicates care, management, recovery, and prognosis #5 persistent intermittent nausea and vomiting along with diarrhea-etiology unknown #6 severe protein and caloric malnutrition-patient will be seen by nutritional services #7 gastritis-patient is on a PPI #8 cardiomyopathy-type unknown, patient is being seen at the [facility] for his medical care, continue patient's home medications at this time. #9 emphysema Medications at Discharge Home Medications albuterol sulfate 90 mcg/actuation aerosol inhaler 2 puff inhalation Q6H PRN Wheezing 08/27/21 aspirin 81 mg tablet,delayed release 81 mg PO DAILY 08/27/21 magnesium 200 mg tablet 420 mg PO BID 08/27/21 metoprolol succinate 200 mg tablet,extended release 24 hr 200 mg PO DAILY 08/27/21 omeprazole 20 mg capsule,delayed release 40 mg PO DAILY 08/27/21 sacubitril 49 mg-valsartan 51 mg tablet 1 tab PO BID 08/27/21 simvastatin 40 mg tablet 40 mg PO QHS 08/27/21 tiotropium bromide 2.5 mcg/actuation mist for inhalation 2 puff inhalation DAILY 08/27/21 carbamide peroxide 6.5 % ear drops 5 - 10 drp RIGHT EAR Q12H 08/05/22 triamcinolone acetonide 0.1 % topical cream 1 applic topical BID skin 08/05/22 furosemide 40 mg tablet 40 mg PO DAILY #30 tabs 08/08/22 levofloxacin 500 mg tablet 500 mg PO DAILY #5 tabs 08/08/22 Hospital Course Operations None Procedures 2-D Echocardiogram and EGD Summary of Care Provided Minutes Spent on Discharge: 32 Hospital Course: This 77-year-old white male was seen in the emergency room at [facility] with complaints of nausea, vomiting, and diarrhea. Patient gave a chronic history of nausea and vomiting over the last several months intermittently, he stated that approximately 2 weeks ago he had an episode of vomiting. Patient also complained of intermittent diarrhea over the last few days. Patient was found to be hypoxic in the emergency room and he required nasal cannula oxygen-patient's pulse ox was 81% on room air upon initial evaluation. Chest x-ray was obtained in the emergency room which showed a right lung infiltrate, CT of the abdomen pelvis was performed which showed no acute process, there was presence of left ureteral stones that were nonobstructing. Patient was given a nebulizer treatment but he still required oxygen, patient required 4 L of nasal cannula oxygen, it was felt that the patient may have aspiration pneumonia and he was given IV antibiotics and he was admitted to PCU. Further testing after the patient was admitted showed an elevated beta nitric peptide, it was felt that the patient probably had congestive heart failure-he has a history of cardiomyopathy but was unable to tell this examiner what kind of cardiomyopathy he had. He told this examiner that at one time the patient's pumping function was 20 to 25% and he was placed on medications at [facility]. Records were not available for review. Over the next several days, patient was given IV Lasix and IV antibiotics for suspected aspiration pneumonia, he was seen by gastroenterology due to complaints of intermittent nausea and vomiting as well as diarrhea, EGD was performed which showed evidence of gastritis and it also showed evidence of retained food in the stomach and duodenum. CTA of the chest revealed no evidence of pulmonary emboli but showed diffuse emphysematous changes with bilateral lower chronic interstitial fibrosis superimposed with patchy infiltrates in both lungs. A CT of the abdomen and pelvis was performed with oral contrast that showed the presence of a probable ileus but no abnormality was noted. Patient improved during his hospitalization but required 3 L of oxygen via nasal cannula to maintain his pulse ox on ambulation and at rest. Nutritional services saw the patient and he was diagnosed as having protein and caloric malnutrition treatment given to the patient by nutritional services. On 08/08/2022, patient was seen and examined: On examination he appeared in good health and spirits. Vital signs as documented. Skin warm and dry and without overt rashes. Neck without JVD, neck was supple, trachea midline, thyroid was normal. Lungs clear bilaterally, normal air movement was noted. Heart exam notable for regular rhythm, normal sounds and absence of murmurs, rubs or gallops. Abdomen unremarkable and without evidence of organomegaly, masses, or abdominal aortic enlargement. Bowel sounds are present, abdomen is not distended. Extremities nonedematous, no cyanosis was noted, no clubbing was noted. Neuro: Cranial nerves II through XII are grossly intact, no focal motor deficits were noted, sensation to light touch and pinprick intact, motor exam 5/5 throughout. Psych: Patient is alert and oriented x3, he does not appear anxious or depressed, he does not appear agitated. Patient's white count was elevated but he showed no signs of fever. Chest x-ray on 08/08/2022 showed improved infiltrate in the lung. On 08/08/2022, patient was seen and examined and discharged home in stable condition, he was to use oxygen at 3 L/min via nasal cannula at all times. Medical Records Data Medical Nutrition Assessment Dietitian: Malnutrition Criteria Met Start: 08/05/22 16:45 Freq: Status: Active Protocol: Document 08/05/22 17:00 RMA (Rec: 08/05/22 17:00 RMA [id number]) Nutrition Malnutrition Evidence of Malnutrition Exists Yes Malnutrition (severe): Acute Illness/Injury Evidenced By Suboptimal Energy Intake ( Severe),Weight Loss (Severe), Physical Changes (Severe) Clinical Problem Acute Disease or Injury Related Malnutrition Etiology Severe protein-calorie malnutrition in the context of acute illness related to inadequate oral intake and altered GI function with nausea/vomiting Signs/Symptoms as evidenced by BMI 16.1, wt loss~7-8% x past 1-2 weeks, visible cachexia with severe muscle/fat wasting in the face , clavicle, orbital/temporal regions, oral intake meeting less than 50% estimated nutrition needs Status Active Problem Recommendation Dietitian Recommendations/Changes Will liberalize diet to regular/no added salt given malnutrition. Will add ensure pudding BID w/ lunch and dinner. Will add 120 ml ensure plus high protein 4 times per day w / medpass. Adjust ONS as needed once intake established with meals. May need to consider TF support for repletion especially if PO remains poor and inadequate at meals. Weight / BMI Weight Weight: 46.5 kg Body Mass Index (BMI) 16.0 ABG / Lab / Microbiology Data Result Diagrams: 08/08/22 05:05 08/07/22 05:08 Laboratory: Laboratory Results - last 24 hr 08/07/22 05:08: Diff Path Review Reviewed 08/08/22 05:05: WBC 19.7 H, RBC 5.00, Hgb 14.4, Hct 43.3, MCV 86.6, MCH 28.8, MCHC 33.3, RDW Std Deviation 45.9 H, RDW Coeff of Sherry 14.4, Plt Count 213, MPV 10.4, Immature Gran % (Auto) 0.300, Neut % (Auto) 86.8 H, Lymph % (Auto) 6.9 L, [place] % (Auto) 5.0, Eos % (Auto) 0.7, Baso % (Auto) 0.3, Absolute Neuts (auto) 17.1 H, Absolute Lymphs (auto) 1.37, Nucleated RBC % 0 Microbiology: Microbiology 08/05/22 17:00 Interface Orders Respiratory Panel (PCR) - Final 08/05/22 08:15 Nasal Secretion SARS-CoV-2 Antigen (Rapid) - Final Radiography Diagnostic Testing: Radiology Impression Chest X-Ray 08/08/22 11:00 IMPRESSION: Mild improvement of the right middle lobe pneumonia. No other change. Electronically Signed: Italo Damon MD at 11:18 EDT , D/C Instructions Discharge Diet: No restrictions Weight Bearing Status: Full weight bearing Meaningful Use Info Meaningful Use Diagnoses (Choose all that apply): CHF CHF RENU/ARB ordered at discharge?: Yes Documented LVEF (%): 60 Discharge Plan Admission Admit Date/Time: 08/05/22 09:27 Primary Reason for Your Visit: pneumonia, diastolic heart failure Attending Provider: Tommy Clifton Primary Care Provider: [facility] Consulting Providers: Friend,Adrian Instructions Additional Instructions / Restrictions: wear 3 liters oxygen continuously follow up regarding your lung disease(emphysema) at the [facility] Discharge Orders/Prescriptions Prescriptions: New furosemide 40 mg Tablet 40 mg PO DAILY Qty: 30 0RF levofloxacin 500 mg tablet 500 mg PO DAILY Qty: 5 0RF Rx Instructions: start today Continued metoprolol succinate 200 mg Tablet Extended Release 24 Hr 200 mg PO DAILY aspirin 81 mg Tablet,Delayed Release (Dr/Ec) 81 mg PO DAILY simvastatin 40 mg Tablet 40 mg PO QHS omeprazole 20 mg Capsule,Delayed Release(Dr/Ec) 40 mg PO DAILY albuterol sulfate 90 mcg/actuation Hfa Aerosol Inhaler 2 puff INHALATION Q6H PRN (Reason: Wheezing) magnesium 200 mg Tablet 420 mg PO BID tiotropium bromide 2.5 mcg/actuation Mist 2 puff INHALATION DAILY sacubitril-valsartan 49-51 mg Tablet 1 tab PO BID triamcinolone acetonide 0.1 % Cream 1 applic TOPICAL BID carbamide peroxide 6.5 % Drops 5 - 10 drp RIGHT EAR Q12H Discontinued fluconazole 150 mg Tablet 150 mg PO DAILY Referrals / Follow Up: [facility] [Primary Care Provider] - Within 2 Weeks Disposition Disposition (needs filled in before D/C Order can be placed): Home, Self Care Charges/Coding Visit Charges Inpatient E&M: 08547 Disch Hosp
--- NOTE | 2022-08-08 11:56 | NURSING ---
I talked to Sagrario with [facility] to inform them of PT's D/C
== END 2022-08-08 13:13 | disposition home or self-care (01) | DRG 177 ==
LOC: ED 07:50 → PCU 08:23
PROVIDERS: Internal Medicine Gastroenterology; Nurse Practitioner Family; Admitting Provider Internal Medicine; Emergency Provider Emergency Medicine; Visit Provider Internal Medicine
PROC: 0DJ08ZZ Inspection of Upper Intestinal Tract, Via Natural or Artificial Opening Endoscopic (ICD-10-PCS; CPT 43235; principal; 2022-08-06 12:25)
DX: J69.0 Pneumonitis due to inhalation of food and vomit (principal); J96.01 Acute respiratory failure with hypoxia; I50.31 Acute diastolic (congestive) heart failure; E43 Unspecified severe protein-calorie malnutrition; I42.9 Cardiomyopathy, unspecified; Z68.1 Body mass index [BMI] 19.9 or less, adult; J84.10 Pulmonary fibrosis, unspecified; J43.9 Emphysema, unspecified; I11.0 Hypertensive heart disease with heart failure; R11.2 Nausea with vomiting, unspecified; R19.7 Diarrhea, unspecified; K29.70 Gastritis, unspecified, without bleeding; E78.00 Pure hypercholesterolemia, unspecified; K21.00 Gastro-esophageal reflux disease with esophagitis, without bleeding; F17.210 Nicotine dependence, cigarettes, uncomplicated; K44.9 Diaphragmatic hernia without obstruction or gangrene; K31.7 Polyp of stomach and duodenum; Z79.82 Long term (current) use of aspirin; Z79.899 Other long term (current) drug therapy
CPT/HCPCS: 36415; 36600; 71046; 71275; 74176; 74177; 80048; 80053; 82803; 83690; 83880; 84484; 85025; 87633; 87811; 88305; 88342; 92610; 93306; 94640; 97162; 97530; 99285; J2185; J7030; J7040; Q9967; A4216; J1940; J2405

== ENCOUNTER 2022-09-24 20:38 | Emergency (ER) | payer OTHER, SELFPAY ==
[2022-09-24] VITALS (9 sets, daily range): BP systolic 112–159; BP diastolic 94–109; PULSE 68–103; RESP 23–35; TEMP 35.5–36.6; O2SAT 85–96; BMI 18.1
--- NOTE | 2022-09-24 20:50 | EDS_ITS ---
HPI History of Present Illness Chief Complaint: Shortness of Breath Narrative Narrative: 77-year-old male past medical history of COPD presents via EMS from home with increased difficulty breathing. He states he has had problems for over a month, but got worse today. He states he feels tired and worn out. While he denies any fever, EMS states that he was drenched in sweat. He denies any chest pain. He recently finished prednisone about a week ago. He states he was supposed to be seen by a biomedical engineering technologist at the [facility] today but he did not feel well enough to make his appointment. He denies history of CHF, no leg swelling. EMS also reports that he was only 88% on his nasal cannula oxygen. [facility] Medical History COPD (chronic obstructive pulmonary disease) GERD (gastroesophageal reflux disease) High cholesterol HTN (hypertension) Home Medications albuterol sulfate 90 mcg/actuation aerosol inhaler 2 puff inhalation Q6H PRN Wheezing 08/27/21 [History Last Taken Unknown] aspirin 81 mg tablet,delayed release 81 mg PO DAILY 08/27/21 [History Last Taken Unknown] magnesium 200 mg tablet 420 mg PO BID 08/27/21 [History Last Taken Unknown] metoprolol succinate 200 mg tablet,extended release 24 hr 200 mg PO DAILY 08/27/21 [History Last Taken Unknown] omeprazole 20 mg capsule,delayed release 40 mg PO DAILY 08/27/21 [History Last Taken Unknown] sacubitril 49 mg-valsartan 51 mg tablet 1 tab PO BID 08/27/21 [History Last Taken Unknown] simvastatin 40 mg tablet 40 mg PO QHS 08/27/21 [History Last Taken Unknown] tiotropium bromide 2.5 mcg/actuation mist for inhalation 2 puff inhalation DAILY 08/27/21 [History Last Taken Unknown] carbamide peroxide 6.5 % ear drops 5 - 10 drp RIGHT EAR Q12H 08/05/22 [History Last Taken Unknown] triamcinolone acetonide 0.1 % topical cream 1 applic topical BID skin 08/05/22 [History Last Taken Unknown] furosemide 40 mg tablet 40 mg PO DAILY #30 tabs 08/08/22 [Rx Last Taken Unknown] levofloxacin 500 mg tablet 500 mg PO DAILY #5 tabs 08/08/22 [Rx Last Taken Unknown] Allergy/AdvReac Type Severity Reaction Status Date / Time amoxicillin [From Augmentin] AdvReac Nausea Verified 09/24/22 20:42 clavulanic acid AdvReac Nausea Verified 09/24/22 20:42 [From Augmentin] Surgical History History of loop recorder Social History Smoking Status: Current some day smoker tobacco type: cigarettes alcohol intake: never substance use type: does not use ROS ROS ED ROS Narrative Constitutional: No fever, no chills. Positive malaise and fatigue. HEENT: No sore throat. No neck pain. No loss of vision. No rhinorrhea. Cardiovascular: No chest pain. No palpitations. No pedal edema. Respiratory: No cough, positive shortness of breath. Abdominal: No abdominal pain. No nausea. No vomiting. Genitourinary: No dysuria. No hematuria. Musculoskeletal: No myalgias. No arthralgias. Neurologic: No headaches. No dizziness. No lightheadedness. Skin: No rash. No change in color. Psychiatric: No depression. No anxiety. EXAM Physical Exam Narrative Exam Narrative: Afebrile. Vital signs noted. HEENT: Normocephalic. Atraumatic. PERRL, EOMI. Neck soft and supple. No point tenderness or step off. Cardiovascular: Regular rate and rhythm with intermittent tachycardia. No murmurs, rubs, or gallops appreciated. Respiratory: Mild tachypnea. Lungs clear to auscultation bilaterally. Minich breath sounds bilateral bases. Gastrointestinal: Abdomen soft, nontender, with normoactive bowel sounds. No rebound or guarding. Neurological: Awake. Alert. Nonfocal, nonlateralizing. Skin: No rash. Normal color. No pallor. Musculoskeletal: No pedal edema. Full range of motion extremities. Const Vital Signs: 09/24/22 20:39 09/24/22 20:38 09/24/22 20:45 Temperature 95.9 F L Temperature Source Temporal Pulse Rate 100 Respiratory Rate 35 H Respiratory Effort Short of Breath Respiratory Depth Normal Respiratory Pattern Tachypnea Blood Pressure 159/109 H Blood Pressure Mean 125 Pulse Ox 85 95 Oxygen Delivery Method Room Air Nasal Cannula Nasal Cannula Oxygen Flow Rate (L/min) 6 6 09/24/22 20:51 09/24/22 21:04 09/24/22 21:00 Temperature 97.9 F Temperature Source Rectal Pulse Rate 103 H Respiratory Rate 23 H Respiratory Effort Respiratory Depth Respiratory Pattern Blood Pressure Blood Pressure Mean Pulse Ox 95 Oxygen Delivery Method Nasal Cannula Oxygen Flow Rate (L/min) 6 MDM MDM MDM Narrative Medical decision making narrative: EKG was obtained which was interpreted by myself. It demonstrates normal sinus rhythm at [address] changes. No STEMI. RN did take his blood sugar at the bedside which is low at 41. He was administered an amp of D50. Repeat blood sugar was approximately 131. Patient denies having diabetes or taking any diabetic medication. He states that he has had decreased appetite recently and has been too weak to get something to eat. He will be given a p.o. challenge here in the emergency department. CBC is returned with an elevated white count of 14.0, hemoglobin 15.9, hematocrit 52.2 with platelet count normal at 214. Upon repeat examination he is feeling improved. However, he feels weak and increasingly short of breath. My interpretation of his chest x-ray shows chronic changes, no pneumothorax, no discrete pneumonia. For his breathing difficulty he was given Solu-Medrol 125 mg intravenously. COVID and influenza swab was obtained and is negative. At this point in time, patient will be signed out to the oncoming physician, Dr. Dom Puga who will check the remainder of the laboratory work. He will reevaluate the patient for possible admission. Patient states that he is more comfortable with observation given his increasing dyspnea and his recent hypoglycemia. Disposition is currently pending. Patient is in stable condition. Lab Data Attestation: I reviewed the patient's lab results. Labs: Laboratory Results - last 24 hr 09/24/22 20:52 WBC 14.0 H RBC 5.54 Hgb 15.9 Hct 52.2 MCV 94.2 H MCH 28.7 MCHC 30.5 L RDW Std Deviation 59.0 H RDW Coeff of Sherry 18.3 H Plt Count 214 MPV 10.5 Immature Gran % (Auto) 0.400 Neut % (Auto) 63.5 Lymph % (Auto) 25.6 [place] % (Auto) 9.9 Eos % (Auto) 0.4 Baso % (Auto) 0.2 Absolute Neuts (auto) 8.9 H Absolute Lymphs (auto) 3.58 Nucleated RBC % 0 Discharge Plan Triage Chief Complaint: Shortness of Breath ED Provider: Bulmaro Lantigua Dx/Rx/DC Orders Clinical Impression: SOB (shortness of breath), Hypoglycemia Prescriptions: No Action metoprolol succinate 200 mg Tablet Extended Release 24 Hr 200 mg PO DAILY aspirin 81 mg Tablet,Delayed Release (Dr/Ec) 81 mg PO DAILY simvastatin 40 mg Tablet 40 mg PO QHS omeprazole 20 mg Capsule,Delayed Release(Dr/Ec) 40 mg PO DAILY albuterol sulfate 90 mcg/actuation Hfa Aerosol Inhaler 2 puff INHALATION Q6H PRN (Reason: Wheezing) magnesium 200 mg Tablet 420 mg PO BID tiotropium bromide 2.5 mcg/actuation Mist 2 puff INHALATION DAILY sacubitril-valsartan 49-51 mg Tablet 1 tab PO BID triamcinolone acetonide 0.1 % Cream 1 applic TOPICAL BID carbamide peroxide 6.5 % Drops 5 - 10 drp RIGHT EAR Q12H furosemide 40 mg Tablet 40 mg PO DAILY Qty: 30 0RF levofloxacin 500 mg tablet 500 mg PO DAILY Qty: 5 0RF Rx Instructions: start today [facility] Care Provider: [facility] Referrals: [facility] [Primary Care Provider] -
[2022-09-24] MEDS: Ipratropium/Albuterol Sulfate 3 ML AMPUL.NEB INHALATION ×2 (20:52→22:51)
[2022-09-24] MEDS: Dextrose 50%-Water 25 GM/50 ML DISP.SYRIN IV (21:00)
[2022-09-24] MEDS: MethylPREDNISolone 125 MG/2 ML Vial IV (21:00)
[2022-09-24 21:12] LABS: Absolute Lymphocyte Count 3.58 X10^3/uL (0.83-4.51); Absolute Neutrophil Count 8.9 X10^3/uL (2.0-7.7); Basophil# 0.03 X10^3/uL; Basophil% 0.2 % (0-1); Eosinophil# 0.06 X10^3/uL; Eosinophils% 0.4 % (0-5); Hematocrit 52.2 % (40-54); Hemoglobin 15.9 g/dL (13.0-16.5); Lymphocyte # 3.58 X10^3/ul (0.83-4.51); Lymphocyte % 25.6 % (19-41); Mean Corp Hgb Conc 30.5 g/dL (32-36); Mean Corpuscular Hgb 28.7 pg (27.0-32.0); Mean Corpuscular Volume 94.2 fL (80-94); Mean Platelet Vol. 10.5 fl (6.2-12.0); Monocyte# 1.38 X10^3/uL; Monocyte% 9.9 % (0-10); NRBC Flagged by Analyzer 0 % (0-5); Neutrophil % 63.5 % (47-70); Platelet Count 214 K/mm3 (150-450); RBC Distribution Width CV 18.3 % (11.6-14.6); Red Blood Count 5.54 M/mm3 (4.6-6.2)
--- NOTE | 2022-09-24 21:20 | RAD_ITS ---
STUDY: X-RAY CHEST REASON FOR EXAM: Male, 77 years old. Shortness of breath. TECHNIQUE: Single AP portable view of the chest. COMPARISON: Chest, August 08, 2022. FINDINGS: Lungs are hyperexpanded with chronic interstitial coarsening. This appears mildly improved at the right lung base with Prior study. Resolution of the right pleural effusion seen on the previous study. Normal size heart. Normal mediastinum and randy. Normal visualized pulmonary arteries. Normal visualized aortic arch and descending thoracic aorta. Stable osseous findings. There is no demonstrated abnormality of the visualized soft tissue structures of the upper abdomen. RAD/Chest 1 View (Portable) IMPRESSION: Probable COPD. There is resolution of the overlying right basilar pneumonia and pleural effusion seen on the previous study. Electronically Signed: Rafael Purvis DO at 21:51 EST ,
[2022-09-24 21:37] LABS: Mucous, Urine 0 SEEN /hpf (<or=2+)
[2022-09-24 21:49] LABS: Color, Urine Yellow (Yellow); Glucose, Dipstick Normal (Normal); Ketone-Dipstick 5 mg/dl (Negative); Leukocyte Esterase-Dipstick 500 /ul (Negative); Nitrite-Dipstick Negative (Negative); Occult Blood-Urine 250 /ul (Negative); Protein-Dipstick 100 mg/dl (Negative); Specific Gravity, Urine 1.015 (1.002-1.030); Urine Clarity Sl. Cloudy (Clear); Urine Urobilinogen 4 mg/dl (Normal)
[2022-09-24 21:51] LABS: Urine Bilirubin Dipstick 1 mg/dL (Negative)
[2022-09-24 21:55] LABS: Amorphous Sediment 1+ URATE; Bacteria RARE /hpf (None Seen); Red Blood Cells-Urine 10-25 SEEN /hpf (0-5); Squamous Epithelial Cells - UA 5-10 SEEN /hpf (0-5); White Blood Cells 25-50 SEEN /hpf (0-5)
[2022-09-24 21:56] LABS: Bedside Glucose 41 mg/dL (74-106)
[2022-09-24 21:56] LABS: Bedside Glucose 131 mg/dL (74-106)
[2022-09-24 22:01] LABS: International Normalized Ratio 1.5; Lactic Acid 7.2 mmol/L (0.4-1.9); Prothrombin Time (Protime)PT. 17.5 SECONDS (11.7-14.9)
[2022-09-24 22:02] LABS: Partial Thromboplast Time 35.1 Seconds (24.1-36.2)
[2022-09-24 22:03] LABS: ALB/GLOB Ratio 0.8 RATIO (0.9-2.4); AST(SGOT) 645 U/L (15-37); Alanine Aminotransfer ALT/SGPT 456 U/L (16-61); Albumin, Serum 3.2 g/dL (3.2-5.0); Alkaline Phosphatase 107 U/L (45-117); Anion Gap 15 (5-15); BUN 31 mg/dL (7-18); BUN/Creat Ratio 18.1 RATIO (10-20); Calcium,Total 10.6 mg/dL (8.5-10.1); Chloride 108 mmol/L (98-107); Creatinine, Serum 1.71 mg/dL (0.70-1.30); EST Glomerular Filtration Rate 42 mL/min (>60); Est Glom Filt Rate - Afr Amer 50 mL/min (>60); Estimated Creatinine Clearance 27.77 ml/min; Globulin 4.2 g/dL (2.2-4.2); Glucose 44 mg/dL (74-106); Potassium 4.6 mmol/L (3.5-5.1); Protein, Total 7.4 g/dL (6.4-8.2); Sodium Level 142 mmol/L (136-145); Troponin-I HS 90 pg/mL (3.0-78.0)
[2022-09-24 22:07] LABS: BNP,B-Type NATRIURETIC PEPTIDE > 5000.0 pg/mL (0-100)
[2022-09-24] MEDS: 0.9% Normal Saline 1,000 ML 999 ML IV (22:11)
[2022-09-24] MEDS: Albuterol 2.5 MG/3 ML VIAL.NEB. INHALATION (22:52)
--- NOTE | 2022-09-24 22:55 | CPS ---
started aero tx with mask-pt states can not breath does not want tx-did not want mask on face-tried to hold mask in front like blow by-pt just keeps stating can not breath and does not want tx. dr breen
--- NOTE | 2022-09-24 23:32 | ED.RN ---
Dr. Brooks in room discussing admission with pt. Pt started seizure like activity and became apneic. Pt displaying agonal breathing. Pt denied extensive life saving measures before this episode with Dr. Puga and Dr. Brooks. Pt given comfort measures only, family at bedside.
[2022-09-25 01:06] LABS: Reflex Lactate? Y
== END 2022-09-25 00:37 ==
PROVIDERS: Emergency Provider Emergency Medicine; Visit Provider Emergency Medicine
DX: R06.02 Shortness of breath (principal); J44.9 Chronic obstructive pulmonary disease, unspecified; E16.2 Hypoglycemia, unspecified; E78.00 Pure hypercholesterolemia, unspecified; I10 Essential (primary) hypertension; F17.210 Nicotine dependence, cigarettes, uncomplicated; K21.9 Gastro-esophageal reflux disease without esophagitis; Z79.899 Other long term (current) drug therapy
CPT/HCPCS: 71045; 80053; 81001; 82962; 83605; 83880; 84484; 85025; 85610; 85730; 87040; 87086; 87088; 87428; 93005; 94640; 96374; 96375; 99285; J7030; A4216